=== PATIENT | male | born 1935 | race Caucasian/White ===

== ENCOUNTER 2017-06-18 10:47 | Emergency (ER) | payer MEDICARE | END 2017-06-18 11:42 | disposition left against medical advice (07) | LOC: UCEAST 10:47 | DX: R21 Rash and other nonspecific skin eruption (principal); Z53.21 Procedure and treatment not carried out due to patient leaving prior to being seen by health care provider ==

== ENCOUNTER 2018-11-19 11:32 | Inpatient (IN) | payer MEDICARE ==
[2018-11-19 12:42] LABS: ABS Basophils 0.1 10^3/ul (0-0.2); ABS Eosinophils 0 10^3/ul (0-0.6); ABS Lymphocytes 1.3 10^3/ul (1.0-4.8); ABS Monocytes 1.1 10^3/ul (0-0.8); ABS Neutrophils 10.2 10^3/ul (1.5-7.7); ABS Nucleated RBC 0 10^3/ul; Eosinophil % 0.2 %; Hematocrit 38 % (42-52); Hemoglobin 13.1 g/dl (14.0-18.0); Lymphocyte % 10.5 %; Mean Corpuscular HGB Conc 34 g/dl (31-36); Mean Corpuscular Hemoglobin 31 pg (27-31); Mean Corpuscular Volume 89 fL (80-94); Mean Platelet Volume 7.8 fL (7.4-10.4); Nucleated Red Blood Cells % 0; Platelet Count 191 10^3/ul (150-450); Red Blood Count 4.31 10^6/ul (4.00-5.40); Red Cell Distribution Width 15 % (10.5-15); White Blood Count 12.7 10^3/ul (3.5-10.8)
[2018-11-19 12:48] LABS: INR 1.07 (0.77-1.02)
--- NOTE | 2018-11-19 12:49 | ED ---
Abdominal Pain/Male - HPI Summary HPI Summary: The patient is an 83 y/o M presenting to [facility] accompanied by with a chief complaint of diffuse suprapubic cramping starting approximately three days ago. The pain is constant with intermittent episodes of worsening, and at its worse, the patient states he is unable to move because of the pain. Currently, the pain is rated 4/10 in severity. After taking Pepto Bismol for relief of the abd pain, he had an onset of dark, watery diarrhea two days ago which returned to normal color yesterday, but now he is more constipated. He additionally c/o decreased appetite, with only small meals because he "isn't hungry," but he denies nausea and vomiting. 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 - History of Current Complaint Chief Complaint: EDAbdPain Stated Complaint: ABD PAIN Time Seen by Provider: 11/19/18 11:56 Hx Obtained From: Patient Onset/Duration: Sudden Onset, Lasting Days, Still Present Timing: Constant, Intermittent - epsidoes of worsening, Lasting Days Severity Initially: Moderate Severity Currently: Mild Pain Intensity: 4 Pain Scale Used: 0-10 Numeric Location: Suprapubic - diffuse Radiates: No Character: Dull, Cramping Aggravating Factor(s): Movement Alleviating Factor(s): Other: - Pepto Bismol Associated Signs And Symptoms: Positive: Constipation, Decreased Appetite, Diarrhea. Negative: Urinary Symptoms, Nausea, Vomiting - Allergies/Home Medications Allergies/Adverse Reactions: Allergies Allergy/AdvReac Type Severity Reaction Status Date / Time pregabalin [From Lyrica] Allergy See Comment Verified 11/19/18 11:45 Home Medications: Home Medications Allopurinol 100 mg PO DAILY 11/19/18 [History Confirmed 11/19/18] Aspirin 81 mg PO DAILY 11/19/18 [History Confirmed 11/19/18] Coreg 50 mg PO QPM 11/19/18 [History Confirmed 11/19/18] Lantus 50 units SUBDERMAL DAILY 11/19/18 [History Confirmed 11/19/18] Lisinopril 2.5 mg PO DAILY 11/19/18 [History Confirmed 11/19/18] Novolog 1 unit SUBDERMAL AC 11/19/18 [History Confirmed 11/19/18] PMH/Surg Hx/FS Hx/Imm Hx Endocrine/Hematology History: Reports: Hx Diabetes, Hx Thyroid Disease - HX OF OVERACTIVE THYROID- NODULE, 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, Hx Anemia - HX OF Denies: Hx Systemic Lupus Erythematosus Cardiovascular History: Reports: Hx Congestive Heart Failure, Hx Coronary Artery Disease, Hx Hypertension, Other Cardiovascular Problems/Disorders - HX OF ATRIAL FLUTTER Denies: Hx Pacemaker/ICD Respiratory History: Reports: Other Respiratory Problems/Disorders - PNEUMONIA 2006 Denies: Hx Asthma, Hx Chronic Obstructive Pulmonary Disease (COPD) GI History: Reports: Hx Ulcer - 2010 History: Reports: Hx Kidney Stones - BLADDER STONES Denies: Hx Renal Disease Musculoskeletal History: Reports: Hx Arthritis - BACK AND LEFT KNEE Denies: Hx Rheumatoid Arthritis Sensory History: Reports: Hx Contacts or Glasses - GLASSES Denies: Hx Hearing Aid Opthamlomology History: Reports: Hx Contacts or Glasses - GLASSES Neurological History: Reports: Hx Nerve Disease - "PINCHED NERVE" NECK Psychiatric History: Reports: Hx Anxiety Denies: Hx Panic Disorder - Surgical History Surgery Procedure, Year, and Place: 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; ENDARECTOMY CAROTID 05/31/2014 @ [facility], ABLATION CARDIAC, CARDIO-VERSION Xs2 ;cystoscopy Hx Anesthesia Reactions: No Infectious Disease History: No Infectious Disease History: Denies: Hx Hepatitis, Hx Human Immunodeficiency Virus (HIV), Traveled Outside the [place] in Last 30 Days - Family History Known Family History: Positive: Diabetes - Social History Lives: With Family Alcohol Use: Occasionally Hx Substance Use: No Substance Use Type: Reports: None Hx Tobacco Use: No Smoking Status (MU): Never Smoked Tobacco Type: Cigarettes Amount Used/How Often: 1 PPD X 40 YEARS Length of Time of Smoking/Using Tobacco: 1 PPD/30 YRS Have You Smoked in the Last Year: No Review of Systems Positive: Abdominal Pain - suprapubic cramping, Diarrhea - for two days, with dark stool at first but normal color the second day, Other - constipation today , decreased appetite. Negative: Vomiting, Nausea Positive: other - NEGATIVE: changes in urination All Other Systems Reviewed And Are Negative: Yes Physical Exam - Summary Physical Exam Summary: Appearance: The patient is well-nourished in no acute distress and in no acute pain. Skin: The skin is warm and dry and skin color reflects adequate perfusion. HEENT: The head is normocephalic and atraumatic. The pupils are equal and reactive. The conjunctivae are clear and without drainage. Nares are patent and without drainage. Mouth reveals moist mucous membranes and the throat is without erythema and exudate. The external ears are intact. The ear canals are patent and without drainage. The tympanic membranes are intact. Neck: The neck is supple with full range of motion and non-tender. There are no carotid bruits. There is no neck vein distension. Respiratory: Chest is non-tender. Lungs are clear to auscultation and breath sounds are symmetrical and equal. Cardiovascular: Heart is regular rate and rhythm. There is no murmur or rub auscultated. There is no peripheral edema and pulses are symmetrical and equal. Abdomen: The abdomen is soft with mild diffuse low tenderness. There are normal bowel sounds heard in all four quadrants and there is no organomegaly palpated. Musculoskeletal: There is no back tenderness noted. Extremities are non-tender with full range of motion. There is good capillary refill. There is no peripheral edema or calf tenderness elicited. Neurological: Patient is alert and oriented to person, place and time. The patient has symmetrical motor strength in all four extremities. Cranial nerves are grossly intact. Deep tendon reflexes are symmetrical and equal in all four extremities. Psychiatric: The patient has an appropriate affect and does not exhibit any anxiety or depression. Triage Information Reviewed: Yes Vital Signs On Initial Exam: Initial Vitals Temp Pulse Resp BP Pulse Ox 97.3 F 90 19 90/56 99 11/19/18 11:40 11/19/18 11:40 11/19/18 11:40 11/19/18 11:40 11/19/18 11:40 Vital Signs Reviewed: Yes Diagnostics - Vital Signs Vital Signs Temp Pulse Resp BP Pulse Ox 11/19/18 11:40 97.3 F 90 19 90/56 99 - Laboratory Result Diagrams: 11/19/18 11:39 11/19/18 11:39 Lab Statement: Any lab studies that have been ordered have been reviewed, and results considered in the medical decision making process. - CT Abd/Pel CT CT Interpretation Completed By: Radiologist Summary of CT Findings: 1. Sigmoidal diverticulitis. A 3.5 cm hypoattenuating area along the posterior wall of the sigmoid is suspicious for a fluid collection; however, evaluation is limited without contrast. There is no bowel obstruction. 2. Hepatic steatosis. 3. Nonobstructive calculus in the lower pole of the right kidney with multiple dependent calculi in the urinary bladder. 4. Prostamegaly with signs of urinary bladder outlet obstruction. 5. The stable previously described hepatic cysts and cavernous hemangioma better characterized by comparison MRI imaging. ED physician has reviewed this report. Abd/Pel CT with Contrast CT Interpretation Completed By: Radiologist Summary of CT Findings: 1. Complicated diverticulitis of the sigmoid colon with a 3.5 x 3.0 x 3.2 cm abscess. There is no free air, free fluid or bowel obstruction. 2. Hepatic steatosis. 3. Nonobstructive calculus in the lower pole of the right kidney with multiple dependent calculi in the urinary bladder. 4. Prostamegaly with signs of urinary bladder outlet obstruction. 5. The stable previously described hepatic cysts and cavernous hemangioma better characterized by comparison dynamic MRI imaging of the abdomen. ED physician has reviewed this report. Abdominal Pain Fem Course/Dx - Course Course Of Treatment: Mr. Hanson presented to the emergency department with a concern for a low-grade low abdominal pain for about a week that had wavelike episodes of increased pain. His laboratory work was relatively unremarkable, he was nontoxic in appearance and his vitals are stable. A noncontrasted CT of the abdomen revealed diverticulitis and the radiologist was unable to confidently report the presence of an abscess but suspected it. Contrasted CT scan was obtained and confirmed a 3.5 x 3 x 3.2 sigmoid abscess. The hospitalist service was contacted to admit the patient for IV antibiotics and possible drainage. - Diagnoses Provider Diagnoses: Diverticulitis of sigmoid colon, Diverticulitis of intestine with abscess - Critical Care Time Critical Care Time: 30-74 min Discharge - Sign-Out/Discharge Documenting (check all that apply): Patient Departure - Discharge Plan Condition: Stable Disposition: ADMITTED TO [facility] Referrals: Norman Stephens MD [Primary Care Provider] - - Billing Disposition and Condition Condition: STABLE Disposition: Admitted to [facility] - Attestation Statements Document Initiated by Idrisibe: Yes Documenting Scribe: Agata Alberto Provider For Whom Baltazar is Documenting (Include Credential): Dr. Jonnie Fine MD Scribe Attestation: Agata Peralta scribed for Dr. Jonnie Fine MD on 11/19/18 at 1837. Scribe Documentation Reviewed: Yes Provider Attestation: The documentation as recorded by the scribe, Agata Alberto accurately reflects the service I personally performed and the decisions made by me, Dr. Jonnie Fine MD Status of Baltazar Document: Viewed
[2018-11-19 12:59] LABS: Albumin 3.3 g/dL (3.2-5.2); BUN/Creatinine Ratio 19.3 (8-20); C Reactive Protein 157.57 mg/L (<8.01); Calcium 9.7 mg/dL (8.6-10.3); EGFR Non-African American 61.5 (>60); Globulin 3.3 g/dL (2-4); Potassium 4.3 mmol/L (3.5-5.0); Total Bilirubin 1.2 mg/dL (0.2-1.0); Total Protein 6.6 g/dL (6.4-8.9)
[2018-11-19] MEDS ORDERED: Iodixanol* (CONTRAST) 320 MG/ML 100 ML SDV IV ONE (14:38)
[2018-11-19 17:13] LABS: Urine Appearance Turbid; Urine Bacteria Absent (Absent); Urine Bilirubin Negative (Negative); Urine Blood 2+ (Negative); Urine Color Yellow; Urine Glucose 1+(50 mg/dL) (Negative); Urine Ketones 1+ (Negative); Urine Nitrite Negative (Negative); Urine Protein Negative (Negative); Urine Red Blood Cell 3+(>10/hpf) (Absent); Urine Specific Gravity 1.019 (1.010-1.030); Urine Uric Acid Crystals Present (Absent); Urine Urobilinogen Negative (Negative); Urine White Blood Cell Absent (Absent)
[2018-11-19] MEDS ORDERED: predniSONE TAB* 10 MG PO PRN (18:18)
[2018-11-19] MEDS ORDERED: Dextrose 50% Syringe 50 ML* 25 GM/50 ML SYRINGE IV PUSH PRN (18:21)
--- NOTE | 2018-11-19 18:28 | ADMNOTE ---
Subjective Date of Service: 11/19/18 Interval History: 83 year old Male with history of Diabetes on insulin, Congestive heart failure with EF < 25%, kidney stone, Hypertesnion who presents to the emergency room for abominal pain X 3 days. It is described as crampy pain, generalized abdominal pain. There is no fever, no chills, no nausea, no vomiting. Having diarrhea since arrival to the ED: 3 episodes of liquid BM. No prior similar episodes. Was recently started on Cephalexin for kidney stone. Family History: Findings - Mother: carotid stenosis, stroke. Father: CHF Social History: Findings - Hernia surgery, carotid endarctecomy, cardiac ablation Past Medical History: Findings - Diabetes, CHF with EF < 25%, Hypertension, neuropathy, gout, atrial flutter, hyperthyroidism Review of Systems - Measurements Intake and Output: Intake and Output Last 24 Hours 11/17/18 11/18/18 11/19/18 11/20/18 06:59 06:59 06:59 06:59 Weight 207 lb - Review of Systems Constitutional Symptoms: Negative: Weight Loss, Fever Dermatology: Negative: Rash HEENT: Negative: Change in Hearing Eyes: Positive: Contacts or Glasses Thyroid: Positive: Primary Hyperthyroidism Pulmonary: Positive: COPD Negative: Cough, Shortness of Breath, Home Oxygen Cardiology: Negative: Chest Pain, Palpitations, Orthopnoea Genital - Urinary: Negative: Dysuria, Polyuria Neurology: Negative: Headache, Change in Vision Psychiatry: Positive: Normal Objective Active Medications: HOME MEDICATION: Carvedilol TAB* [Coreg TAB*] 25 mg PO QAM 11/07/13 [History Confirmed 11/19/18] Finasteride TAB* [Proscar TAB*] 5 mg PO QPM 11/07/13 [History Confirmed 11/19/18 ] Omeprazole CAP (NF) [Prilosec CAP*] 20 mg PO QPM 11/07/13 [History Confirmed 10/26] Pravastatin Sodium [Pravachol] 80 tab PO QPM 11/07/13 [History Confirmed ] Terazosin CAP* [Hytrin CAP*] 5 mg PO BEDTIME 11/07/13 [History Confirmed ] Spironolactone TAB* [Aldactone TAB 25 MG*] 50 mg PO QPM 09/06/14 [History Confirmed 11/19/18] predniSONE TAB* [Deltasone TAB*] 100 mg PO QPM PRN 12/12/14 [History Confirmed 11/19/18] Digoxin TAB* [Lanoxin TAB*] 0.125 mg PO QAM 08/21/15 [History Confirmed 11/19/18 ] Latanoprost 0.005% OPTH (NF) [Xalatan 0.005% OPTH (NF)] 1 drop BOTH EYES QPM [History Confirmed 11/19/18] Methimazole TAB* [Tapazole TAB*] 2.5 mg PO QAM 08/21/15 [History Confirmed 11/19] Ropinirole TAB* [Requip TAB*] 0.5 tab PO DAILY 08/21/15 [History Confirmed 11/19] Tramadol HCl [Ultram] 50 mg PO Q4H PRN 08/21/15 [History Confirmed 11/19/18] Allopurinol 100 mg PO DAILY 11/19/18 [History Confirmed 11/19/18] Aspirin 81 mg PO DAILY 11/19/18 [History Confirmed 11/19/18] Coreg 50 mg PO QPM 11/19/18 [History Confirmed 11/19/18] Lantus 50 units SUBDERMAL DAILY 11/19/18 [History Confirmed 11/19/18] Lisinopril 2.5 mg PO DAILY 11/19/18 [History Confirmed 11/19/18] Novolog 1 unit SUBDERMAL AC 11/19/18 [History Confirmed 11/19/18] Vital Signs - 8 hr 11/19/18 11/19/18 11/19/18 11:40 12:11 12:12 Temperature 97.3 F Pulse Rate 90 79 Respiratory 19 Rate Blood Pressure 90/56 112/71 (mmHg) O2 Sat by Pulse 99 Oximetry 11/19/18 11/19/18 11/19/18 12:42 13:01 13:12 Temperature Pulse Rate 88 92 Respiratory Rate Blood Pressure 112/71 110/62 (mmHg) O2 Sat by Pulse 96 95 Oximetry 11/19/18 11/19/18 11/19/18 13:42 14:00 15:07 Temperature Pulse Rate 95 84 98 Respiratory Rate Blood Pressure 123/65 (mmHg) O2 Sat by Pulse 95 95 97 Oximetry 11/19/18 11/19/18 11/19/18 15:12 16:39 16:42 Temperature Pulse Rate 87 79 85 Respiratory Rate Blood Pressure 91/68 89/62 (mmHg) O2 Sat by Pulse 97 93 96 Oximetry 11/19/18 17:00 Temperature Pulse Rate 91 Respiratory Rate Blood Pressure (mmHg) O2 Sat by Pulse 93 Oximetry Oxygen Devices in Use Now: None Appearance: Elderly male, sitting on chair, not in distress Eyes: PERRLA Respiratory: Clear to Auscultation Cardiovascular: RRR, No Edema Abdominal: - - Bowel sounds are normoactive, soft, mildly tender, no ridigity or guarding, non-distended Extremities: No Edema Neurological: Alert and Oriented x 3 Result Diagrams: 11/19/18 11:39 11/19/18 11:39 Diagnostic Imaging: Abdominal CT IMPRESSION: 1. Complicated diverticulitis of the sigmoid colon with a 3.5 x 3.0 x 3.2 cm abscess. There is no free air, free fluid or bowel obstruction. 2. Hepatic steatosis. 3. Nonobstructive calculus in the lower pole of the right kidney with multiple dependent calculi in the urinary bladder. 4. Prostamegaly with signs of urinary bladder outlet obstruction. 5. The stable previously described hepatic cysts and cavernous hemangioma better characterized by comparison dynamic MRI imaging of the abdomen. This report is only to be considered final once signed by the Provider(s) as displayed in the "<Electronically Signed by >" field (s). Absence of a signature indicates the report is in a draft status and still needs to be finalized. In the event this document was created by someone other than the signing Provider, the individual initiating the document will be listed in the "Entered by:" or "Dictated by:" aguilar. 2 of 2 Assess/Plan/Problems-Billing Assessment: 83 year old Male with history of Diabetes, Hyperthyroidism, CHF EF < 25% who presents with abdominal pain, CT shows diverticulitis with abscess. - Patient Problems (1) Diverticulitis of intestine with abscess Current Visit: Yes Status: Acute Code(s): K57.80 - DVTRCLI OF INTEST, PART UNSP, W PERF AND ABSCESS W/O BLEED SNOMED Code(s): 365106106 Comment: Diverticulitis with 3.5 X 3.0 X [address] Waddell was contacted in the ED, recommended antibiotics and call IR for drainage. started zosyn, IR not availble right now, will need to call on Wednesday and discuss case with IR. (2) Hyperthyroidism Current Visit: Yes Status: Acute Code(s): E05.90 - THYROTOXICOSIS, UNSP WITHOUT THYROTOXIC CRISIS OR STORM SNOMED Code(s): 40657565 Comment: Continue methimazole, Check TSH (3) CHF (congestive heart failure) Current Visit: Yes Status: Acute Code(s): I50.9 - HEART FAILURE, UNSPECIFIED SNOMED Code(s): 74299795 Comment: without exacerbation. Continue home regimen: coreg, aldactone, digoxin, statin (4) HTN (hypertension) Current Visit: Yes Status: Acute Code(s): I10 - ESSENTIAL (PRIMARY) HYPERTENSION SNOMED Code(s): 52107232 Comment: continue home regimen (5) Gout Current Visit: Yes Status: Acute Code(s): M10.9 - GOUT, UNSPECIFIED SNOMED Code(s): 03174188 Comment: On allopurinol (6) History of kidney stones Current Visit: Yes Status: Acute Code(s): Z87.442 - PERSONAL HISTORY OF URINARY CALCULI SNOMED Code(s): 697049243 (7) DVT prophylaxis Current Visit: Yes Status: Acute Code(s): QHU1346 - SNOMED Code(s): 667857231 Comment: Adrianna Garner
[2018-11-19] MEDS: Piperacillin/Tazobac ADVAN(*) 3.375 GM in NS 0.9% 100 ML* 100 ML IVPB SCH (20:18)
[2018-11-19] MEDS: Enoxaparin(*) 40 MG/0.4 ML SYR SUBCUT SCH (20:29)
[2018-11-19] MEDS: Pantoprazole TAB * 40 MG TAB PO SCH (20:29)
[2018-11-19] MEDS: Carvedilol TAB* 25 MG PO SCH (20:29)
[2018-11-19] MEDS: Lactobacillus Acidophilus* 1 TAB PO SCH (20:30)
[2018-11-19] MEDS: Latanoprost 0.005%* 2.5 ml BTL BOTH EYES SCH (20:30)
[2018-11-19] MEDS: Terazosin CAP* 5 MG PO SCH (20:30)
[2018-11-19] MEDS: Insulin LISPRO* 1 UNITS UNIT SUBCUT SCH (22:30)
[2018-11-20] MEDS: Piperacillin/Tazobac ADVAN(*) 3.375 GM in NS 0.9% 100 ML* 100 ML IVPB SCH ×3 (03:30→19:45)
[2018-11-20 07:13] LABS: ABS Basophils 0.1 10^3/ul (0-0.2); ABS Eosinophils 0 10^3/ul (0-0.6); ABS Lymphocytes 1.4 10^3/ul (1.0-4.8); ABS Neutrophils 7.5 10^3/ul (1.5-7.7); ABS Nucleated RBC 0 10^3/ul; Eosinophil % 0.2 %; Hematocrit 34 % (42-52); Hemoglobin 11.6 g/dl (14.0-18.0); Lymphocyte % 13.7 %; Mean Corpuscular HGB Conc 34 g/dl (31-36); Mean Corpuscular Hemoglobin 30 pg (27-31); Mean Corpuscular Volume 88 fL (80-94); Nucleated Red Blood Cells % 0; Platelet Count 156 10^3/ul (150-450); Red Blood Count 3.83 10^6/ul (4.00-5.40); Red Cell Distribution Width 16 % (10.5-15); White Blood Count 9.9 10^3/ul (3.5-10.8)
[2018-11-20 07:41] LABS: BUN/Creatinine Ratio 17.9 (8-20); Magnesium 1.6 mg/dL (1.9-2.7); Phosphorus 2.9 mg/dL (2.5-5.0); Potassium 3.8 mmol/L (3.5-5.0)
[2018-11-20 08:40] LABS: TSH (Thyroid Stimulating Horm) 1.03 mcIU/mL (0.34-5.60)
[2018-11-20] MEDS ORDERED: Insulin GLARGINE(*) 1 UNITS UNIT SUBCUT SCH (09:00)
[2018-11-20] MEDS: Ropinirole TAB* 0.5 MG TAB PO SCH (09:34)
[2018-11-20] MEDS: Lactobacillus Acidophilus* 1 TAB PO SCH ×2 (09:34→20:46)
[2018-11-20] MEDS: Lisinopril TAB* 5 MG PO SCH (09:35)
[2018-11-20] MEDS: Carvedilol TAB* 25 MG PO SCH ×2 (09:35→17:00)
[2018-11-20] MEDS: Methimazole TAB* 5 MG PO SCH (09:36)
[2018-11-20] MEDS: Digoxin TAB* 0.125 MG PO SCH (09:36)
[2018-11-20] MEDS: Allopurinol TAB* 100 MG PO SCH (09:36)
[2018-11-20] MEDS: Insulin LISPRO* 1 UNITS UNIT SUBCUT SCH ×4 (09:37→20:46)
[2018-11-20] MEDS: Aspirin 81 mg CHEW TAB* 81 MG TAB.CHEW PO SCH (09:37)
[2018-11-20] MEDS: Insulin GLARGINE(*) 1 UNITS UNIT SUBCUT SCH (09:38)
--- NOTE | 2018-11-20 11:32 | PN ---
Subjective Date of Service: 11/20/18 Interval History: Pt stated that abd pain started Wednesday and now resolved. denies fever, SOB, chills. Loose BM's started last night(so far 4 total) Family History: Findings - Mother: carotid stenosis, stroke. Father: CHF Social History: Findings - Hernia surgery, carotid endarctecomy, cardiac ablation Past Medical History: Findings - Diabetes, CHF with EF < 25%, Hypertension, neuropathy, gout, atrial flutter, hyperthyroidism Objective Active Medications: Allopurinol (Zyloprim Tab*) 100 mg PO DAILY [facility] Last Admin: 11/20/18 09:36 Dose: 100 mg Aspirin (Aspirin 81 Mg Chew Tab*) 81 mg PO DAILY [facility] Last Admin: 11/20/18 09:37 Dose: 81 mg Atorvastatin Calcium (Lipitor*) 20 mg PO QPM [facility] Carvedilol (Coreg Tab*) 25 mg PO QAM [facility] Last Admin: 11/20/18 09:35 Dose: 25 mg Carvedilol (Coreg Tab*) 50 mg PO QPM [facility] Last Admin: 11/19/18 20:29 Dose: 50 mg Dextrose (D50w Syringe 50 Ml*) 12.5 gm IV PUSH .FOR FS < 60 - SS PRN PRN Reason: FS < 60 Digoxin (Lanoxin Tab*) 0.125 mg PO QAM [facility] Last Admin: 11/20/18 09:36 Dose: 0.125 mg Enoxaparin Sodium (Lovenox(*)) 40 mg SUBCUT 2100 [facility] Last Admin: 11/19/18 20:29 Dose: 40 mg Finasteride (Proscar Tab*) 5 mg PO QPM [facility] Piperacillin Sod/Tazobactam (Sod 3.375 gm/ Sodium Chloride) 100 mls @ 25 mls/ hr IVPB Q8H [facility] Last Admin: 11/20/18 03:30 Dose: 25 mls/hr Sodium Chloride (Ns 0.9% 1000 Ml*) 1,000 mls @ 75 mls/hr IV PER RATE [facility] Insulin Glargine (Lantus(*)) 40 units SUBCUT DAILY [facility] Last Admin: 11/20/18 09:38 Dose: 40 unit Insulin Human Lispro (Humalog*) 0 units SUBCUT ACHS [facility]; Protocol Last Admin: 11/20/18 09:37 Dose: 2 unit Lactobacillus Rhamnosus (Lactobacillus Acidophilus*) 1 tab PO BID [facility] Last Admin: 11/20/18 09:34 Dose: 1 tab Latanoprost (Xalatan 0.005%*) 1 drop BOTH EYES 2100 [facility] Last Admin: 11/19/18 20:30 Dose: 1 drop Lisinopril (Prinivil Tab*) 2.5 mg PO DAILY [facility] Last Admin: 11/20/18 09:35 Dose: 2.5 mg Methimazole (Tapazole Tab*) 2.5 mg PO QAM [facility] Last Admin: 11/20/18 09:36 Dose: 2.5 mg Pantoprazole Sodium (Protonix Tab (Nf)) 40 mg PO QPM [facility] Last Admin: 11/19/18 20:29 Dose: 40 mg Ropinirole HCl (Requip Tab*) 0.25 mg PO DAILY [facility] Last Admin: 11/20/18 09:34 Dose: 0.25 mg Terazosin HCl (Hytrin Cap*) 5 mg PO BEDTIME [facility] Last Admin: 11/19/18 20:30 Dose: 5 mg Vital Signs - 8 hr 11/20/18 11/20/18 11/20/18 03:38 03:57 07:14 Temperature 97.2 F 98.5 F Pulse Rate 92 92 96 Respiratory 16 16 16 Rate Blood Pressure 112/46 114/52 97/55 (mmHg) O2 Sat by Pulse 97 95 97 Oximetry 11/20/18 11/20/18 11/20/18 08:00 09:33 09:36 Temperature Pulse Rate 96 Respiratory 20 Rate Blood Pressure 118/52 (mmHg) O2 Sat by Pulse Oximetry Oxygen Devices in Use Now: None Appearance: 83 yo m in nAD, aAOx3 Eyes: No Scleral Icterus, PERRLA Ears/Nose/Mouth/Throat: NL Teeth, Lips, Gums, Mucous Membranes Moist Neck: NL Appearance and Movements; NL JVP, Trachea Midline Respiratory: Symmetrical Chest Expansion and Respiratory Effort, Clear to Auscultation Cardiovascular: - - tachy Abdominal: NL Sounds; No Tenderness; No Distention, No Hepatosplenomegaly Lymphatic: No Cervical Adenopathy Extremities: No Edema, No Clubbing, Cyanosis Skin: No Rash or Ulcers, No Nodules or Sclerosis Neurological: Alert and Oriented x 3, NL Muscle Strength and Tone Result Diagrams: 11/20/18 06:47 11/20/18 06:47 Diagnostic Imaging: Abdominal CT IMPRESSION: 1. Complicated diverticulitis of the sigmoid colon with a 3.5 x 3.0 x 3.2 cm abscess. There is no free air, free fluid or bowel obstruction. 2. Hepatic steatosis. 3. Nonobstructive calculus in the lower pole of the right kidney with multiple dependent calculi in the urinary bladder. 4. Prostamegaly with signs of urinary bladder outlet obstruction. 5. The stable previously described hepatic cysts and cavernous hemangioma better characterized by comparison dynamic MRI imaging of the abdomen. This report is only to be considered final once signed by the Provider(s) as displayed in the "<Electronically Signed by >" field (s). Absence of a signature indicates the report is in a draft status and still needs to be finalized. In the event this document was created by someone other than the signing Provider, the individual initiating the document will be listed in the "Entered by:" or "Dictated by:" aguilar. 2 of 2 Assess/Plan/Problems-Billing Assessment: 83 year old Male with history of Diabetes, Hyperthyroidism, CHF EF < 25% , PAF( not on Xarelto due to hematuria in the past) who declined ICD recently("would not improve my quality of life")who presents with abdominal pain, CT shows diverticulitis with abscess. - Patient Problems (1) Diverticulitis of intestine with abscess Comment: Diverticulitis with 3.5 X 3.0 X 3.2 cm abscess. d/w Dr. Waddell who will see pt in consult. Spoke with Dr. Damon from radiology- the abscess location is not amenable to IR drain due to location. Plan is to tx with antibiotcs IV, then PO. (2) CHF (congestive heart failure) Comment: without exacerbation. Continue home regimen: coreg, digoxin, statin (3) HTN (hypertension) Comment: continue home regimen (4) History of kidney stones Comment: pt was on cephalexin daily for UTI supression from Dr. Stahl. Holding it when on Zosyn. (5) Hyperthyroidism Comment: Continue methimazole.TSH 1.03 (6) Increased creatine kinase level Comment: pt has had diarrhea, likley prerenal state now. will hold aldactone x 1 day and start gentle IVF. Watch daily weights due to h/o CHF. (7) DVT prophylaxis Comment: Lovenox subQ
--- NOTE | 2018-11-20 14:25 | CONS ---
HISTORY AND PHYSICAL CONSULTATION: DATE OF CONSULT: 11/20/18 SERVICE: General Surgery. ATTENDING PHYSICIAN: Dr. Cori Waddell. REASON FOR CONSULT: Diverticulitis with abscess. HISTORY OF PRESENT ILLNESS: Mr. Hanson is an 83-year-old gentleman with multiple medical problems including diabetes, congestive heart failure with an ejection fraction of less than 25%, renal and bladder stones, previous cardiac ablation and carotid endarterectomy, who presented to the emergency room yesterday with complaints of 3 days of suprapubic lower abdominal pain. The patient said that he was in his normal state of health prior to this pain beginning. He says that around the same time the pain started he started having some diarrhea. He does have a history of having several large bladder stones. Dr. Stahl has been following him for this and he has attempted cystoscopy and lithotripsy. He thought that this pain was largely due to a kidney stone. He says that he did not have any fevers at home and no nausea or vomiting. He also notes that he had a colonoscopy done in 2016, which was normal. During his workup the patient had a CT scan of his abdomen and pelvis performed with IV contrast that did show diverticulitis with a contained pericolonic abscess that was about 35 mm in diameter. He has since been admitted to the medicine service. He has been on IV antibiotics and today he says he has no abdominal pain and he remains afebrile and he is able to tolerate a diet. PAST MEDICAL HISTORY: 1. Diabetes. 2. Congestive heart failure, EF less than 25%. 3. Kidney stones. 4. Bladder stones. 5. Hypertension. 6. Atrial flutter. 7. Carotid stenosis, status post carotid endarterectomy. 8. He also has a history of neuropathy. 9. Gout. 10. Hyperthyroidism. PAST SURGICAL HISTORY: Carotid endarterectomy, hernia repair. No abdominal surgeries. MEDICATIONS: 1. Carvedilol 25 mg p.o. q.a.m. 2. Finasteride 5 mg p.o. q.p.m. 3. Omeprazole. 4. Pravastatin. 5. Terazosin. 6. Spironolactone. 7. Prednisone 100 mg p.o. q.p.m. p.r.n. 8. Digoxin 0.125 mg p.o. q.a.m. 9. Latanoprost. 10. Methimazole 2.5 mg p.o. q.a.m. 11. Ropinirole. 12. Tramadol. 13. Allopurinol. 14. Aspirin 81 mg p.o. daily. 15. Coreg 50 mg p.o. q.p.m. 16. Lantus 50 units subdermal daily. 17. Lisinopril 2.5 mg p.o. daily. 18. NovoLog 1 unit subdermal a.c. ALLERGIES: PREGABALIN. FAMILY HISTORY: Mother had carotid stenosis and from a stroke. His father had congestive heart failure. SOCIAL HISTORY: Lives at home with his . Not currently smoking. In the past, he did smoke. REVIEW OF SYSTEMS: Negative except for resolved abdominal pain and diarrhea. PHYSICAL EXAM: Vital Signs: Temperature is 98.5, pulse is 96, respiratory rate is 20, O2 sat is 97% O2 on room air, blood pressure is 118/52. General: He is an elderly man, lying comfortably in bed, in no apparent distress. HEENT : He is normocephalic, atraumatic. Respiratory: He has no increased work of breathing. Abdomen is soft, nontender, nondistended. Above the pubis, he does state that he has some fullness when palpating deeply this area. Extremities: No edema. Neuro: He is A and O x3. DIAGNOSTIC STUDIES/LAB DATA: From 11/20/18, his white blood cell count is 9.9, hemoglobin 11.6, hematocrit 34, platelets 156. Sodium is 135, potassium is 3.8 , chloride is 101, CO2 is 22, BUN is 24, creatinine is 1.34, glucose is 191. Radiology: From 11/19/18, CT abdomen and pelvis shows complicated diverticulitis of the sigmoid colon with 35 x 30 x 32 mm abscess. No free fluid or bowel obstruction. 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 ASSESSMENT AND PLAN: Mr. Hanson is an 83-year-old gentleman with multiple medical problems including congestive heart failure, atrial flutter, hypertension, diabetes, who presents with diverticulitis and pericolonic abscess. The patient has had a very uneventful hospital course. He remains afebrile, his pain has resolved, he is tolerating a diet without abdominal pain , and his white count has normalized. I have reviewed his CT scan and it appears that he does have a contained pericolonic abscess that is likely not amenable to percutaneous drainage, which is adjacent to an area of inflamed sigmoid colon. Otherwise, there is no free fluid in the abdomen and just some mild stranding around the segment of sigmoid colon. The patient has been on IV antibiotics and seems to be responding very well. I discussed with the patient and his at length the etiology of diverticulitis as well as the different treatment options. I explained to him that typically with complicated diverticulitis the recommended treatment would be to later on undergo a sigmoid colectomy after recovery of this event. However, given his extensive cardiac history, the risk of cardiac events during anesthesia versus the risk of having a recurrent complicated diverticulitis must be weighed carefully. I did note to the patient and his that the risk of not doing surgery is having recurrent diverticulitis and the potential for complications from this in the future. I also said that after admission, the patient should be followed up with the [facility] for a colonoscopy in 6 to 8 weeks after this inflammation has resolved in order to assess the colon and ensure that there is not actually a malignancy as a source of his perforation. I have also recommended that Infectious Diseases follow this patient, given that this likely cannot be percutaneously drained and he will have to be on some sort of long-term oral antibiotics for treatment. The patient and his seemed to be amenable to this and at this time do not seem to want surgery in the future even after this episode resolves. After the patient is discharged, he should follow up with [facility] Surgery in about 2 weeks for a followup visit. [id number]/[facility] #: [id number] JED
[2018-11-20] MEDS: Atorvastatin* 20 MG TAB PO SCH (17:00)
[2018-11-20] MEDS: Pantoprazole TAB * 40 MG TAB PO SCH (17:00)
[2018-11-20] MEDS: Finasteride TAB* 5 MG PO SCH (17:00)
[2018-11-20] MEDS ORDERED: Spironolactone TAB* 25 MG PO SCH (18:00)
[2018-11-20] MEDS: NS 0.9% 1000 ML* 1,000 ML IV SCH (19:45)
[2018-11-20] MEDS: Enoxaparin(*) 40 MG/0.4 ML SYR SUBCUT SCH (20:46)
[2018-11-20] MEDS: Terazosin CAP* 5 MG PO SCH (20:46)
[2018-11-20] MEDS: Latanoprost 0.005%* 2.5 ml BTL BOTH EYES SCH (20:49)
[2018-11-21] MEDS: Piperacillin/Tazobac ADVAN(*) 3.375 GM in NS 0.9% 100 ML* 100 ML IVPB SCH ×3 (03:30→19:41)
[2018-11-21] MEDS: NS 0.9% 1000 ML* 1,000 ML IV SCH (04:27)
[2018-11-21] MEDS ORDERED: Spironolactone TAB* 25 MG PO SCH (09:00)
[2018-11-21 09:22] LABS: Hematocrit 31 % (42-52); Hemoglobin 10.4 g/dl (14.0-18.0); Mean Corpuscular HGB Conc 34 g/dl (31-36); Mean Corpuscular Hemoglobin 30 pg (27-31); Mean Corpuscular Volume 89 fL (80-94); Mean Platelet Volume 7.8 fL (7.4-10.4); Platelet Count 145 10^3/ul (150-450); Red Blood Count 3.43 10^6/ul (4.00-5.40); Red Cell Distribution Width 15 % (10.5-15)
--- NOTE | 2018-11-21 09:23 | PN ---
Progress Note - Progress Note Date of Service: 11/21/18 Note: Surgery Progress Note S: Patient has no new complaints. He feels well. He has no abdominal pain, he has been tolerating a regular diet. This morning he had a soft stool for the first time, prior to this is has been diarrhea. He did have a low grade fever overnight to 100.4 Objective: Laboratory Results - last 24 hr 11/20/18 11/20/18 11/20/18 11:11 16:24 19:50 POC Glucose (mg/dL) 219 H 159 H 198 H 11/21/18 07:20 POC Glucose (mg/dL) 159 H . Vital Signs: Temp Pulse Resp BP Pulse Ox 99.0 F 94 16 109/41 95 11/21/18 07:20 11/21/18 07:20 11/21/18 07:38 11/21/18 07:20 11/21/18 07:20 Vital Signs - 24 hr 11/20/18 11/20/18 11/20/18 09:33 09:36 11:05 Temperature 98.5 F Pulse Rate 96 91 Respiratory 16 Rate Blood Pressure 118/52 81/36 (mmHg) O2 Sat by Pulse 97 Oximetry 11/20/18 11/20/18 11/20/18 12:00 15:15 15:49 Temperature 99.3 F Pulse Rate 92 Respiratory 16 Rate Blood Pressure 110/70 87/41 100/78 (mmHg) O2 Sat by Pulse 95 Oximetry 11/20/18 11/20/18 11/20/18 19:40 19:55 20:00 Temperature 99.3 F Pulse Rate 90 Respiratory 16 16 Rate Blood Pressure 102/48 (mmHg) O2 Sat by Pulse 96 Oximetry 11/20/18 11/21/18 11/21/18 23:34 00:28 03:38 Temperature 100.4 F 100.4 F 99.8 F Pulse Rate 94 94 99 Respiratory 16 16 16 Rate Blood Pressure 88/29 101/50 98/42 (mmHg) O2 Sat by Pulse 97 97 96 Oximetry 11/21/18 11/21/18 11/21/18 07:20 07:37 07:38 Temperature 99.0 F Pulse Rate 94 Respiratory 16 16 16 Rate Blood Pressure 109/41 (mmHg) O2 Sat by Pulse 95 Oximetry Intake & Output 11/20/18 11/21/18 11/21/18 22:59 06:59 14:59 Intake Total 953 679 220 Balance 953 679 220 Weight 216 lb 4.8 oz Intake: IV Fluids 713 679 ABX - ZOSYN 100 100 NS 613 579 Oral 240 0 220 Other: # Bowel Movements 1 Estimated Stool Amount Medium # Voids 2 Physical exam: abdomen soft, non tender, non distended A/P: 83 M with diverticulitis and pericolonic abscess, doing well. - Patient continues to have no pain, tolerating a regular diet however did have a low grade fever overnight. His WBC from this morning is still pending. Appreciate ID recommendations regarding length of therapy. -Possible discharge home today if he remains afebrile. He can [facility] with [facility] as an outpatient and he should follow up with GI as an outpatient for a colonoscopy in 6-8 weeks to ensure there the perforation was not due to a malignancy.
[2018-11-21] MEDS: Ropinirole TAB* 0.5 MG TAB PO SCH (09:39)
[2018-11-21] MEDS: Lisinopril TAB* 5 MG PO SCH (09:39)
[2018-11-21] MEDS: Carvedilol TAB* 25 MG PO SCH ×2 (09:40→17:04)
[2018-11-21] MEDS: Allopurinol TAB* 100 MG PO SCH (09:40)
[2018-11-21] MEDS: Digoxin TAB* 0.125 MG PO SCH (09:40)
[2018-11-21] MEDS: Insulin GLARGINE(*) 1 UNITS UNIT SUBCUT SCH (09:41)
[2018-11-21] MEDS: Lactobacillus Acidophilus* 1 TAB PO SCH ×2 (09:41→20:16)
[2018-11-21] MEDS: Aspirin 81 mg CHEW TAB* 81 MG TAB.CHEW PO SCH (09:41)
[2018-11-21] MEDS: Insulin LISPRO* 1 UNITS UNIT SUBCUT SCH ×4 (09:42→20:17)
[2018-11-21] MEDS: Methimazole TAB* 5 MG PO SCH (09:43)
[2018-11-21 09:44] LABS: Calcium 8.3 mg/dL (8.6-10.3); EGFR Non-African American 28.1 (>60); Potassium 3.7 mmol/L (3.5-5.0)
--- NOTE | 2018-11-21 12:01 | CONS ---
CONSULTATION REPORT: DATE OF CONSULT: 11/21/18 REQUESTING PHYSICIAN: Dr. James CONSULTING SERVICE: Infectious Disease. REASON FOR CONSULT: Diverticular abscess. IMPRESSION: 1. Intraabdominal abscess due to perforated diverticulitis of the sigmoid colon. It is 3.5 x 3 x 3.2 cm, not accessible by Interventional Radiology. He is improving on Zosyn. 2. Diverticulitis, last colonoscopy a few years ago. 3. Ejection fraction less than 25%. 4. Atrial flutter. RECOMMENDATIONS: Continue Zosyn while here and then Invanz 1 g daily to continue outpatient therapy. He has had 2 days of IV antibiotics, plan on 10 days total of IV and I will change him to Augmentin to finish a 3-week course. He will follow up with me early next week. He will need a weekly CBC, CMP, CRP , and a midline catheter. We discussed antibiotic side effects including fever, rash, diarrhea. HISTORY OF PRESENT ILLNESS: An 83-year-old man with a couple of days of worsening lower abdominal pain with some chills, decreased appetite, who came to the hospital. CT showed abscess, this is described above. Radiology did not feel it is accessible for a drain. Surgery saw him, did not think he needs a surgery. He is improving after 2 days of Zosyn. The pain is much improved. His appetite is coming around. He is having no diarrhea. No chills or sweats at night. He has not had diverticulitis in the past that he knows of. He has had a colonoscopy, which was normal per his report. PAST MEDICAL HISTORY: 1. Diabetes. 2. Atrial flutter. 3. Congestive heart failure, ejection fraction less than 25%. 4. Hypertension. 5. Neuropathy, 6. Gout. 7. Hypothyroidism. 8. Urinary tract infection with nephrolithiasis. ALLERGIES: PREGABALIN. MEDICATIONS: 1. Allopurinol. 2. Aspirin. 3. Lipitor. 4. Coreg. 5. Digoxin. 6. Finasteride. 7. Enoxaparin. 8. Insulin glargine. 9. Lactobacillus. 10. Lisinopril. 11. Methimazole. 12. Pantoprazole. 13. Ropinirole. 15. Terazosin. 16. Zosyn 3.375 g IV every 8 hours. SOCIAL HISTORY: Lives in [place] with his . No sick contacts. FAMILY HISTORY: Mother had carotid stenosis and CVA. Father had heart failure. REVIEW OF SYSTEMS: A 14-point review of system is all negative except as noted above in the history of present illness. PHYSICAL EXAM: Vital Signs: Temperature 37, heart rate 90, respiratory rate 16 , blood pressure 110/40, oxygen saturation 95% on room air. In general, he is awake, not in distress. Neurologic: He is oriented x3. Follows all commands. HEENT: There is no conjunctival hemorrhage. Oropharynx without lesions. Neck : Neck is supple without mass. Heart is regular rate and rhythm without murmurs, rubs, or gallops. Lungs are clear to auscultation bilaterally. Abdomen: Soft, nontender, nondistended. There are bowel sounds present. Skin : There is no rash or splinter hemorrhage. Musculoskeletal: There is no spine tenderness to palpation. DIAGNOSTIC STUDIES/LAB DATA: White blood cell count 9 down from 12, hemoglobin 11, platelets 156. Creatinine 1.3. Please see impression and recommendations as outlined above, which I am going to discuss with Dr. James. Thanks for asking me to see Mr. Hanson in consultation. [id number]/[facility] #: [id number] MTDD
[2018-11-21] MEDS ORDERED: Acetaminophen TAB* 325 MG PO PRN (12:53)
--- NOTE | 2018-11-21 14:32 | PN ---
Subjective Date of Service: 11/21/18 Interval History: Pt feels well.No recurrence of abd pain. Chronic back pain worse "from hospital bed". BM's loose , had 3 in the past 24H. Denies problems with urination Family History: Findings - Mother: carotid stenosis, stroke. Father: CHF Social History: Findings - Hernia surgery, carotid endarctecomy, cardiac ablation Past Medical History: Findings - Diabetes, CHF with EF < 25%, Hypertension, neuropathy, gout, atrial flutter, hyperthyroidism Objective Active Medications: Acetaminophen (Tylenol Tab*) 650 mg PO Q4H PRN PRN Reason: FEVER/PAIN Last Admin: 11/21/18 12:57 Dose: 650 mg Allopurinol (Zyloprim Tab*) 100 mg PO DAILY [facility] Last Admin: 11/21/18 09:40 Dose: 100 mg Aspirin (Aspirin 81 Mg Chew Tab*) 81 mg PO DAILY [facility] Last Admin: 11/21/18 09:41 Dose: 81 mg Atorvastatin Calcium (Lipitor*) 20 mg PO QPM [facility] Last Admin: 11/20/18 17:00 Dose: 20 mg Carvedilol (Coreg Tab*) 25 mg PO QAM [facility] Last Admin: 11/21/18 09:40 Dose: 25 mg Carvedilol (Coreg Tab*) 50 mg PO QPM [facility] Last Admin: 11/20/18 17:00 Dose: 50 mg Dextrose (D50w Syringe 50 Ml*) 12.5 gm IV PUSH .FOR FS < 60 - SS PRN PRN Reason: FS < 60 Digoxin (Lanoxin Tab*) 0.125 mg PO QAM [facility] Last Admin: 11/21/18 09:40 Dose: 0.125 mg Enoxaparin Sodium (Lovenox(*)) 40 mg SUBCUT 2100 [facility] Last Admin: 11/20/18 20:46 Dose: 40 mg Finasteride (Proscar Tab*) 5 mg PO QPM [facility] Last Admin: 11/20/18 17:00 Dose: 5 mg Piperacillin Sod/Tazobactam (Sod 3.375 gm/ Sodium Chloride) 100 mls @ 25 mls/ hr IVPB Q8H [facility] Last Admin: 11/21/18 12:57 Dose: 25 mls/hr Sodium Chloride (Ns 0.9% 1000 Ml*) 1,000 mls @ 75 mls/hr IV PER RATE [facility] Last Admin: 11/21/18 04:27 Dose: 75 mls/hr Insulin Glargine (Lantus(*)) 40 units SUBCUT DAILY [facility] Last Admin: 11/21/18 09:41 Dose: 40 unit Insulin Human Lispro (Humalog*) 0 units SUBCUT ACHS [facility]; Protocol Last Admin: 11/21/18 12:57 Dose: 1 unit Lactobacillus Rhamnosus (Lactobacillus Acidophilus*) 1 tab PO BID [facility] Last Admin: 11/21/18 09:41 Dose: 1 tab Latanoprost (Xalatan 0.005%*) 1 drop BOTH EYES 2100 [facility] Last Admin: 11/20/18 20:49 Dose: 1 drop Lisinopril (Prinivil Tab*) 2.5 mg PO DAILY [facility] Last Admin: 11/21/18 09:39 Dose: 2.5 mg Methimazole (Tapazole Tab*) 2.5 mg PO QAM [facility] Last Admin: 11/21/18 09:43 Dose: 2.5 mg Pantoprazole Sodium (Protonix Tab (Nf)) 40 mg PO QPM [facility] Last Admin: 11/20/18 17:00 Dose: 40 mg Ropinirole HCl (Requip Tab*) 0.25 mg PO DAILY [facility] Last Admin: 11/21/18 09:39 Dose: 0.25 mg Spironolactone (Aldactone Tab*) 50 mg PO DAILY [facility] Last Admin: 11/21/18 09:40 Dose: 50 mg Terazosin HCl (Hytrin Cap*) 5 mg PO BEDTIME [facility] Last Admin: 11/20/18 20:46 Dose: 5 mg Vital Signs - 8 hr 11/21/18 11/21/18 11/21/18 07:20 07:37 07:38 Temperature 99.0 F Pulse Rate 94 Respiratory 16 16 16 Rate Blood Pressure 109/41 (mmHg) O2 Sat by Pulse 95 Oximetry 11/21/18 11/21/18 11/21/18 09:40 11:26 12:41 Temperature 98.5 F Pulse Rate 108 91 Respiratory 16 Rate Blood Pressure 110/70 (mmHg) O2 Sat by Pulse 97 Oximetry Oxygen Devices in Use Now: None Appearance: 83 yo M in nAD, aAOx3 Eyes: No Scleral Icterus, PERRLA Ears/Nose/Mouth/Throat: NL Teeth, Lips, Gums, Mucous Membranes Moist Neck: NL Appearance and Movements; NL JVP, Trachea Midline Respiratory: Symmetrical Chest Expansion and Respiratory Effort, - - fine bibasiliar crackles Cardiovascular: NL Sounds; No Murmurs; No JVD, RRR Abdominal: NL Sounds; No Tenderness; No Distention, No Hepatosplenomegaly Lymphatic: No Cervical Adenopathy Extremities: No Edema, No Clubbing, Cyanosis Skin: No Rash or Ulcers, No Nodules or Sclerosis Neurological: Alert and Oriented x 3, NL Muscle Strength and Tone Result Diagrams: 11/21/18 09:13 11/21/18 09:13 Assess/Plan/Problems-Billing Assessment: 83 year old Male with history of Diabetes, Hyperthyroidism, CHF EF < 25% , PAF( not on Xarelto due to hematuria in the past) who declined ICD recently("would not improve my quality of life")who presents with abdominal pain, CT shows diverticulitis with abscess. - Patient Problems (1) Increased creatine kinase level Comment: acute renal failure, with worsening today, despite stopping aldactone ( x1 dose) and IVF. CT shows poss of bladder outlet obstruction by prostate pt denies urinary symptoms, but will obtain post void. Cont IVF, hold Aldactone, lisinoprl. will get digoxin level in aM (2) Diverticulitis of intestine with abscess Comment: Diverticulitis with 3.5 X 3.0 X 3.2 cm abscess. d/w Dr. Waddell -appreciate consult. Spoke with Dr. Damon from radiology-the abscess location is not amenable to IR drain due to location. Plan is to tx with antibiotcs IV -ertapenem as outpatinet infusions daily x [address] Delgado recommendation (3) CHF (congestive heart failure) Comment: Chronic, systoloc, without exacerbation. Continue home regimen: coreg, digoxin, statin Holding Aldactone due to renal failure (4) HTN (hypertension) Comment: continue home regimen (5) History of kidney stones Comment: pt was on cephalexin daily for UTI supression from Dr. Stahl. Holding it when on IV antibiotics (6) Hyperthyroidism Comment: Continue methimazole.TSH 1.03 (7) DVT prophylaxis Comment: Lovenox subQ Status and Disposition: inpatient.
[2018-11-21] MEDS: Pantoprazole TAB * 40 MG TAB PO SCH (17:04)
[2018-11-21] MEDS: Finasteride TAB* 5 MG PO SCH (17:04)
[2018-11-21] MEDS: Atorvastatin* 20 MG TAB PO SCH (17:04)
[2018-11-21] MEDS: Latanoprost 0.005%* 2.5 ml BTL BOTH EYES SCH (20:17)
[2018-11-21] MEDS: Terazosin CAP* 5 MG PO SCH (20:17)
[2018-11-21] MEDS ORDERED: Enoxaparin(*) 30 MG/0.3 ML SYR SUBCUT SCH (21:00)
[2018-11-22] MEDS: Piperacillin/Tazobac ADVAN(*) 3.375 GM in NS 0.9% 100 ML* 100 ML IVPB SCH ×2 (04:25→12:28)
[2018-11-22 06:28] LABS: ABS Basophils 0 10^3/ul (0-0.2); ABS Eosinophils 0 10^3/ul (0-0.6); ABS Lymphocytes 1.4 10^3/ul (1.0-4.8); ABS Monocytes 0.8 10^3/ul (0-0.8); ABS Neutrophils 4.7 10^3/ul (1.5-7.7); ABS Nucleated RBC 0 10^3/ul; Eosinophil % 0.6 %; Hematocrit 29 % (42-52); Lymphocyte % 19.8 %; Mean Corpuscular HGB Conc 34 g/dl (31-36); Mean Corpuscular Hemoglobin 30 pg (27-31); Mean Corpuscular Volume 89 fL (80-94); Mean Platelet Volume 7.9 fL (7.4-10.4); Nucleated Red Blood Cells % 0; Platelet Count 158 10^3/ul (150-450); Red Blood Count 3.31 10^6/ul (4.00-5.40); Red Cell Distribution Width 15 % (10.5-15)
[2018-11-22 06:44] LABS: BUN/Creatinine Ratio 13.5 (8-20); Calcium 8.6 mg/dL (8.6-10.3); EGFR Non-African American 33.7 (>60); Potassium 3.7 mmol/L (3.5-5.0)
[2018-11-22] MEDS: Lactobacillus Acidophilus* 1 TAB PO SCH (08:41)
[2018-11-22] MEDS: Digoxin TAB* 0.125 MG PO SCH (08:41)
[2018-11-22] MEDS: Ropinirole TAB* 0.5 MG TAB PO SCH (08:45)
[2018-11-22] MEDS: Allopurinol TAB* 100 MG PO SCH (08:45)
[2018-11-22] MEDS: Aspirin 81 mg CHEW TAB* 81 MG TAB.CHEW PO SCH (08:45)
[2018-11-22] MEDS: Carvedilol TAB* 25 MG PO SCH (08:45)
[2018-11-22] MEDS: Insulin LISPRO* 1 UNITS UNIT SUBCUT SCH ×2 (08:47→12:27)
[2018-11-22] MEDS: Methimazole TAB* 5 MG PO SCH (10:10)
[2018-11-22] MEDS: NS 0.9% 1000 ML* 1,000 ML IV SCH (10:12)
[2018-11-22] MEDS: Insulin GLARGINE(*) 1 UNITS UNIT SUBCUT SCH (10:13)
[2018-11-22] MEDS ORDERED: traMADol TAB* 50 MG PO PRN (10:22)
[2018-11-22 12:32] VITALS: BP 107/45
--- NOTE | 2018-11-22 14:25 | PN ---
Progress Note - Progress Note Date of Service: 11/22/18 SOAP: Subjective: CC: abdominal abscess HPI: 83 year old man with diverticular abscess; abd pain resolved, no fever. Appetite is ok. Loose stools 4 times today. Objective: Vital Signs Temp 37.0 C 11/22/18 10:59 Pulse 85 11/22/18 10:59 Resp 20 11/22/18 10:59 BP 107/45 11/22/18 10:59 Pulse Ox 94 11/22/18 10:59 Intake & Output 11/21/18 11/22/18 11/22/18 18:59 06:59 18:59 Intake Total 804 0 350 Output Total 0 Balance 804 0 350 Weight 216 lb 14.4 oz Intake: IV Fluids 459 ABX - ZOSYN 25 NS 434 Oral 345 0 350 Output: Urine 0 Other: Estimated Void Medium # Bowel Movements 2 1 Estimated Stool Amount Medium # Voids 2 3 Gen:awake, no distress HEENT: no thrush Heart:RRR no murmur Lungs:CTA BL Abd:+BS NTND soft Skin: no rash Laboratory Results - last 24 hr 11/21/18 11/21/18 11/22/18 16:13 19:46 06:13 WBC RBC Hgb Hct MCV MCH MCHC RDW Plt Count MPV Neut % (Auto) Lymph % (Auto) Morris % (Auto) Eos % (Auto) Baso % (Auto) Absolute Neuts (auto) Absolute Lymphs (auto) Absolute Monos (auto) Absolute Eos (auto) Absolute Basos (auto) Absolute Nucleated RBC Nucleated RBC % Sodium 137 Potassium 3.7 Chloride 106 Carbon Dioxide 21 L Anion Gap 10 BUN 26 H Creatinine 1.92 H Est GFR ( Amer) 40.8 Est GFR (Non-Af Amer) 33.7 BUN/Creatinine Ratio 13.5 Glucose 166 H POC Glucose (mg/dL) 127 H 189 H Calcium 8.6 C-Reactive Protein 141.00 H Digoxin 1.0 11/22/18 11/22/18 11/22/18 06:13 07:25 12:03 WBC 7.0 RBC 3.31 L Hgb 10.0 L Hct 29 L MCV 89 MCH 30 MCHC 34 RDW 15 Plt Count 158 MPV 7.9 Neut % (Auto) 67.8 Lymph % (Auto) 19.8 Morris % (Auto) 11.2 Eos % (Auto) 0.6 Baso % (Auto) 0.6 Absolute Neuts (auto) 4.7 Absolute Lymphs (auto) 1.4 Absolute Monos (auto) 0.8 Absolute Eos (auto) 0 Absolute Basos (auto) 0 Absolute Nucleated RBC 0 Nucleated RBC % 0 Sodium Potassium Chloride Carbon Dioxide Anion Gap BUN Creatinine Est GFR ( Amer) Est GFR (Non-Af Amer) BUN/Creatinine Ratio Glucose POC Glucose (mg/dL) 160 H 182 H Calcium C-Reactive Protein Digoxin Assessment: 1. Diverticulitis w perforation and abscess 2. Bladder stones on keflex suppression 3. diarrhea, abx associated Plan: 1. invanz daily 10 more days w weekly cbc, cmp, crp and midline , fu me 1-2 weeks 25 minutes floor time >50% face to face in counseling w patient and regarding abx plans and side effects
--- NOTE | 2018-11-22 22:36 | DS ---
CC: Dr. Stephens; Dr. Waddell; Dr. Vergara * DISCHARGE SUMMARY: DATE OF ADMISSION: 11/19/18 DATE OF DISCHARGE: 11/22/18 PRIMARY CARE PROVIDER: Dr. Stephens. DISCHARGE DIAGNOSES: 1. Diverticulitis with intraabdominal abscess. 2. Acute renal failure, likely prerenal. SECONDARY DIAGNOSES: 1. History of diabetes, insulin-dependent. 2. History of chronic systolic congestive heart failure with EF of 25%. 3. Hypertension. 4. Neuropathy. 5. Gout. 6. History of atrial flutter, not on anticoagulation due to the history of hematuria on Xarelto. 7. History of hypothyroidism. 8. History of bladder stones, status post cystoscopies in the past. The patient is on chronic urinary tract infection suppression with cephalexin as an outpatient. MEDICATIONS: At discharge include: 1. Invanz which is ertapenem 1 g IV every 24 hours for a total of 10 days, to be started at an outpatient infusion center on 11/23/18. 2. Culturelle 1 capsule b.i.d. for a total of 30 days. The remaining medications that are discontinued/held are lisinopril and Aldactone. They were held due to acute renal failure. The remaining medications that are unchanged include: 1. Allopurinol 100 mg daily. 2. Aspirin 81 mg daily. 3. Coreg 25 mg daily in the a.m. and 50 mg q.p.m. 4. Digoxin 0.125 mg in a.m. 5. Proscar 5 mg q.p.m. 6. Lantus insulin 50 units at bedtime. 7. Xalatan eyedrops 1 drop both eyes daily. 8. Methimazole 2.5 mg q.a.m. 9. NovoLog insulin as per sliding scale. 10. Omeprazole 20 mg daily. 11. Pravachol 80 mg daily. 12. Requip 0.5 mg daily. 13. Terazosin 5 mg at bedtime. 14. Ultram 50 mg every 4 hours p.r.n. The patient is recommended to have a basic metabolic panel checked in approximately 3 days. FOLLOWUP: The patient is recommended to follow up with Dr. Vergara in approximately 1 week. He is instructed to call Dr. Vergara's office if the office has not called him with an scheduled appointment. The patient's already called Dr. Stephens for an appointment and they are awaiting response. The appointment is needed to be scheduled in approximately 4 to 7 days for a followup. DIET AT DISCHARGE: Lind. The patient is scheduled tomorrow at 8 a.m. at the infusion center for a midline placement as well as daily Invanz infusions, for which the patient is going to come to the hospital. HOSPITALIZATION COURSE: Cleveland Hanson is an 83-year-old male with history of chronic systolic CHF with low EF at 25%, hypothyroidism, diabetes insulin- dependent, who presented to the hospital complaining of crampy lower abdominal pain for the past 4 days. He was noted to have diverticulitis with 3.5 x 3 x 3.2 cm intraabdominal abscess localized close to/above the urinary bladder. The patient was placed on antibiotics and within 24 hours, his pain resolved. Dr. Waddell saw the patient in consultation from surgery. It was noted that the patient is not a good surgical candidate and he responded very well to IV antibiotics. I spoke with the radiologist service who noted that the abscess location is not amenable for percutaneous drain placement. Dr. Vergara saw the patient in consultation from Infectious Diseases. They recommended continuation of Zosyn while hospitalized and to switch the patient to Invanz for 10 days at discharge. The patient stayed in the hospital until 11/22/18 due to acute renal failure. It is suspected that acute renal failure was due to prerenal because the patient responded well to IV fluids and discontinuation of his diuretics. At this point, the patient still has 4 loose bowel movements a day and I recommended for the patient to hold his Aldactone and hold his lisinopril and to check his weights on a daily basis to make sure that he does not gain weight or he does not develop peripheral edema that would indicate congestive heart failure. If he continues to have loose bowel movements on a daily basis, he is to stay off his Aldactone and lisinopril until placed back by his primary care provider. Due to that the patient may develop exacerbation of his CHF, he should be seen by his primary care provider hopefully later this week or early next week for a followup. Please also note that the patient's CT noted prostatomegaly with signs of urinary bladder obstruction. We did postvoid residual and it was 102 mL and the patient's creatinine improved without a Lane catheter being placed. The patient has no symptoms of dysuria. By the time of discharge, the patient complained of no abdominal pain and he is going to be discharged with followup with his primary care provider as mentioned above. LABORATORY DATA: Throughout the patient's hospital stay included: 1. On 11/22/18, white blood cell count of 7.0, hemoglobin of 10.0, hematocrit of 29, and platelets of 158. 2. Sodium of 137, potassium 3.7, chloride 106, CO2 21, BUN 26, creatinine 1.92. C- reactive protein was 141 on the day of discharge and was 157 on the day of admission. 3. Urinalysis shows +1 ketones, +3 RBCs, absent bacteria, absent esterase, absent nitrates. 4. Digoxin level was 1.0 on 11/22/18. 5. CT of the abdomen and pelvis was initially performed without contrast on 10/26. Impression: "Sigmoid diverticulitis and 3.5 cm hypoattenuation area around the posterior wall of the sigmoid suspicious for fluid collection; however, evaluation is limited without contrast. There was no bowel obstruction. Hepatosteatosis. Nonobstructive calculus at the lower pole of the right kidney with multiple dependent calculi in the urinary bladder. Prostatomegaly with signs of urinary bladder outlet obstruction. The stable previously described hepatic cyst and cavernous hemangioma better characterized by comparison MRI imaging." A repeat CT obtained on the same day with contrast. Impression: "Complicated diverticulitis of the sigmoid colon with 3.5 x 3.0 x 3.2 cm abscess. There is no free air, free fluid or bowel obstruction." Please note that this is a short summary of the patient's hospital stay. Please refer to further medical records for details. TIME SPENT: Approximately 45 minutes was spent on the patient's discharge. [id number]/[facility] #: [id number] MTDD
== END 2018-11-22 15:30 | disposition home or self-care (01) | DRG 392 ==
LOC: ED 11:32 → MEDTELE 18:17
PROVIDERS: ADMIT Internal Medicine; ATTEND Internal Medicine
DX: K57.20 Diverticulitis of large intestine with perforation and abscess without bleeding (principal); N17.8 Other acute kidney failure; I50.22 Chronic systolic (congestive) heart failure; I48.92 Unspecified atrial flutter; K52.1 Toxic gastroenteritis and colitis; E11.40 Type 2 diabetes mellitus with diabetic neuropathy, unspecified; I48.0 Paroxysmal atrial fibrillation; I11.0 Hypertensive heart disease with heart failure; J44.9 Chronic obstructive pulmonary disease, unspecified; E05.90 Thyrotoxicosis, unspecified without thyrotoxic crisis or storm; K76.0 Fatty (change of) liver, not elsewhere classified; M10.9 Gout, unspecified; N21.0 Calculus in bladder; N20.0 Calculus of kidney; N32.0 Bladder-neck obstruction; T36.95XA Adverse effect of unspecified systemic antibiotic, initial encounter; Y92.230 Patient room in hospital as the place of occurrence of the external cause; Z79.82 Long term (current) use of aspirin; Z79.4 Long term (current) use of insulin; Z79.52 Long term (current) use of systemic steroids; Z79.899 Other long term (current) drug therapy; Z82.5 Family history of asthma and other chronic lower respiratory diseases; Z82.3 Family history of stroke
CPT/HCPCS: 36415; 74176; 74177; 80048; 80053; 80162; 81003; 81015; 83605; 83690; 83735; 84100; 84443; 85025; 85027; 85610; 86140; 99283; A9270-GY; J1650; J2543; Q9967

== ENCOUNTER 2020-01-09 10:25 | Inpatient (IN) | payer MEDICARE ==
--- OUTSIDE RECORDS SUMMARY | 2020-01-09 10:43 | XMS REPORT | Continuity of Care Document ---
:1935 External Reference #:[id number] Author Name Regla Rayo N.P. (transmitted by agent of provider Danielle Soliz) Address [address] [place] [address] Care Team Providers Name Role Phone Norman Stephens MD - Family Care Team Information Chart Picker [phone] Medicine Problems Active Problems Provider Date Diabetes mellitus Dustin Mays MD Onset: 01/11/2008 Note: on insulin since 2013 Cerebrovascular disease Dustin Mays MD Onset: 01/10/2014 Benign essential hypertension Gideon Remy M.D. Onset: 10/21/2011 Paroxysmal ventricular tachycardia Gideon Remy M.D. Onset: 01/15/2012 Obesity Gideon Remy M.D. Onset: 06/28/2013 Atrial flutter [place] [facility] Schedule Onset: 12/06/2013 Mitral valve disorder Gideon Remy M.D. Onset: 04/24/2014 Localized, primary osteoarthritis Maldonado More M.D. Onset: 09/12/2018 Chronic peptic ulcer Dustin Mays MD Onset: 01/10/2011 Note: while on ASA 81mg Social History Type Date Description Comments Sex Unknown Tobacco Use Start: Unknown End: Former Cigarette Smoker quite 2004 Unknown Smoking Status Reviewed: 11/20/19 Former Cigarette Smoker quite 2004 ETOH Use Occasionally consumes beer Tobacco Use Start: Unknown End: Patient is a former smoker Unknown Recreational Drug Use Denies Drug Use Exercise Type/Frequency Exercises rarely Allergies, Adverse Reactions, Alerts Description No Known Drug Allergies Medications Active Medications SIG Qnty Indications Ordering Date Provider Brimonidine Tartrate one drop in Unknown 11/19/2019 0.2% each eye at Solution night Spironolactone 1 tab by mouth 90tabs Regla Rayo, 12/26/2018 50mg Tablets every day N.P. Digox 1 by mouth 90tabs Gideon Richter 10/07/2018 125mcg Tablets every day Renay Remy Carvedilol 1 by mouth in 300tabs Gideon Richter 07/01/2015 25mg Tablets am, two in the Renay Remy evening Aspir-81 1 by mouth 100tabs Gideon Richter 07/01/[address] every day Renay Remy Lantus 35 units SQ in Unknown 12/19/2014 100Unit/ML Solution am and pm Novolog Flexpen sliding scale Unknown 12/19/2014 100Unit/ML Solution Pen-Inject Prednisone 2 by mouth qd 30tabs Other Ordering 09/30/2014 10mg Tablets as needed for Provider pain Methimazole 1/2 tablet Unknown 01/27/2009 5mg Tablets daily Finasteride 1 po qd 90tabs Unknown 12/19/2006 5mg Tablets Atorvastatin Calcium 1 by mouth 90tabs Gideon Richter 80mg every day Renay Remy Tablets Docusate Sodium 1 by mouth Unknown 250mg every day Capsules Latanoprost 1 drop in each Unknown 0.005% Solution eye at bedtime Ropinirole HCL take 1/2 tablet Unknown 1mg Tablets by mouth at bedtime Allopurinol 1 by mouth Unknown 300mg Tablets every day Vitamin C 1 by mouth Unknown 500mg Tablets every day Tramadol HCL 1-2 tablets Unknown 50mg Tablets every 6 hours as needed Omeprazole 1 po qd 30caps Unknown 20mg Capsules Terazosin HCL 1 po qd 90caps Unknown 5mg Capsules History Medications Lisinopril 1/2 by mouth 90tabs I42.9 Gideon Richter 10/03/2019 - 2.5mg every day (pt Renay Remy 11/20/2019 Tablets stopped waiting for advice.) Medications Administered in Office Medication SIG Qnty Indications Ordering Provider Date Depomedrol 40MG Dirk Derik, M.D. 09/12/2018 Injection Depomedrol 40MG Maldonado More M.D. 04/18/2018 Injection Depomedrol 40MG Maldonado More M.D. 12/20/2017 Injection Depomedrol 40MG Maldonado More M.D. 08/18/2017 Injection Depomedrol 80MG Maldonado More M.D. 02/11/2015 Injection Depomedrol 80MG Maldonado More M.D. 01/10/2014 Injection Depomedrol 80MG Maldonado More M.D. 07/17/2013 Injection Depomedrol 80MG Maldonado More M.D. 03/13/2013 Injection Depomedrol 80MG Maldonado More M.D. 12/19/2012 Injection Depomedrol 80MG Maldonado More M.D. 07/18/2012 Injection Depomedrol 80MG Maldonado More M.D. 02/24/2012 Injection Immunizations Description No Information Available Vital Signs Date Vital Result Comment 11/20/2019 10:57am Height 7272 inches 606'0" Weight 213.25 lb Heart Rate 88 /min right radial BP Systolic Sitting 106 mmHg ure reg cuff BP Diastolic Sitting 62 mmHg ure reg cuff BMI (Body Mass Index) 0.0 kg/m2 Ejection Fraction 20-25% Echo 11/16/19 10/03/2019 11:41am Height 72 inches 6'0" Weight 211.12 lb with shoes Heart Rate 80 /min BP Systolic Sitting 140 mmHg Lue (regular cuff) BP Diastolic Sitting 68 mmHg Lue (regular cuff) BP Systolic Standing 138 mmHg BP Diastolic Standing 68 mmHg BP Systolic Lying Down 108 mmHg la repeat sitting BP Diastolic Lying Down 60 mmHg la repeat sitting BMI (Body Mass Index) 28.6 kg/m2 Ejection Fraction 20-25% closer to 20% Echocardiogram 08/22/2018 Results Test Acquired Date Facility Test Result H/L Range Note Lipid Panel - 11/17/2019 [facility] Creatine 29 U/L Normal 10- [address] Kinase(CK) [place], [place] [id number] [phone] Comp Metabolic 11/17/2019 [facility] Sodium 138 mmol/L Normal 135-[address] [place] [address] [phone] Potassium 4.5 mmol/L Normal 3.5-5.0 Chloride 102 mmol/L Normal 101-111 Co2 Carbon Dioxide 28 mmol/L Normal 22-32 Anion Gap 8 mmol/L Normal 2-11 Glucose 188 mg/dL High 70-100 Blood Urea Nitrogen 19 mg/dL Normal 6-24 Creatinine 0.84 mg/dL Normal 0.67-1.17 BUN/Creatinine Ratio 22.6 High 8-20 Calcium 9.3 mg/dL Normal 8.6-10.3 Total Protein 6.4 g/dL Normal 6.4-8.9 Albumin 3.8 g/dL Normal 3.2-5.2 Globulin 2.6 g/dL Normal 2-4 Albumin/Globulin Ratio 1.5 Normal 1-3 Total Bilirubin 0.70 mg/dL Normal 0.2-1.0 Alkaline Phosphatase 62 U/L Normal 34-104 Alt 18 U/L Normal 7-52 Ast 14 U/L Normal 13-39 Egfr Non- 87.3 >60 Egfr 105.6 >60 2 Lipid Profile 11/17/2019 [facility] Triglycerides 166 mg/dL 3 (Trig/Chol/HDL) [address] [place] [address] [phone] Cholesterol 164 mg/dL 4 HDL Cholesterol 50.3 mg/dL 5 LDL Cholesterol 81 mg/dL 6 Order 11/16/2019 [facility] Echocardiogram <pending> [address] [place] [address] [phone] CBC Auto 10/18/2019 [facility] White Blood Count 9.2 10^3/uL Normal 3.5- Diff [address] [place], [place] [id number] [phone] Red Blood Count 4.29 10^6/uL Normal 4.18-5.48 Hemoglobin 13.3 g/dL Low 14.0-18.0 Hematocrit 39 % Low 42-52 Mean Corpuscular Volume 91 fL Normal 80-94 Mean Corpuscular Hemoglobin 31 pg Normal 27-31 Mean Corpuscular HGB Conc 34 g/dL Normal 31-36 Red Cell Distribution Width 16 % High 10-15 Platelet Count 180 10^3/uL Normal 150-450 Mean Platelet Volume 9.0 fL Normal 7.4-10.4 Abs Neutrophils 7.4 10^3/uL Normal 1.5-7.7 Abs Lymphocytes 1.2 10^3/uL Normal 1.0-4.8 Abs Monocytes 0.7 10^3/uL Normal 0-0.8 Abs Eosinophils 0.0 10^3/uL Normal 0-0.6 Abs Basophils 0.0 10^3/uL Normal 0-0.2 Abs Nucleated RBC 0.0 10^3/uL Granulocyte % 79.6 % Lymphocyte % 12.9 % Monocyte % 7.3 % Eosinophil % 0.0 % Basophil % 0.2 % Nucleated Red Blood Cells % 0.0 Laboratory test 10/18/2019 [facility] Digoxin 0.7 ng/ml Low 0.8-2.[address] [place] [address] [phone] Lipid Panel - 10/18/2019 [facility] Creatine 23 U/L Normal 10- [address] Kinase(CK) [place] [address] [phone] Comp Metabolic 10/18/2019 [facility] Sodium 136 mmol/L Normal 135-[address] [place] [address] [phone] Potassium 4.7 mmol/L Normal 3.5-5.0 Chloride 99 mmol/L Low 101-111 Co2 Carbon Dioxide 28 mmol/L Normal 22-32 Anion Gap 9 mmol/L Normal 2-11 Glucose 263 mg/dL High 70-100 Blood Urea Nitrogen 19 mg/dL Normal 6-24 Creatinine 0.91 mg/dL Normal 0.67-1.17 BUN/Creatinine Ratio 20.9 High 8-20 Calcium 9.0 mg/dL Normal 8.6-10.3 Total Protein 6.6 g/dL Normal 6.4-8.9 Albumin 3.8 g/dL Normal 3.2-5.2 Globulin 2.8 g/dL Normal 2-4 Albumin/Globulin Ratio 1.4 Normal 1-3 Total Bilirubin 0.80 mg/dL Normal 0.2-1.0 Alkaline Phosphatase 62 U/L Normal 34-104 Alt 18 U/L Normal 7-52 Ast 12 U/L Low 13-39 Egfr Non- 79.6 >60 Egfr 96.3 >60 7 Lipid Profile 10/18/2019 [facility] Triglycerides 230 mg/dL 8 (Trig/Chol/HDL) [address] [place] [address] [phone] Cholesterol 226 mg/dL 9 HDL Cholesterol 50.9 mg/dL 10 LDL Cholesterol 129 mg/dL 11 Urine Microalbumin 10/18/2019 [facility] Ur Microalbumin 38.5 mg /L Random [address] (mg/L) [place] [address] [phone] Urine Creatinine 92.10 mg/dL Urine Microalbumin/Creatinine 41.8 High <31 Liver Function 10/18/2019 [facility] Total Protein 6.6 g/dL Normal 6.4-8.[address] [place] [address] [phone] Albumin 3.8 g/dL Normal 3.2-5.2 Globulin 2.8 g/dL Normal 2-4 Albumin/Globulin Ratio 1.4 Normal 1-3 Total Bilirubin 0.80 mg/dL Normal 0.2-1.0 Direct Bilirubin 0.10 mg/dL Normal 0.03-0.18 Indirect Bilirubin 0.7 mg/dL Normal 0.3-1.0 Alkaline Phosphatase 62 U/L Normal 34-104 Alt 18 U/L Normal 7-52 Ast 12 U/L Low 13-39 Laboratory test 10/18/2019 [facility] Vitamin B12 306 pg/mL Normal 180-914 12 finding [address] [place] [address] [phone] 1 FASTING in 2 m Copy Result to: NORMAN STEPHENS ([id number]) 2 Because ethnic data is not always readily available, this report includes an eGFR for both -Americans and non- Americans. The National Kidney Disease Education Program (NKDEP) does not endorse the use of the MDRD equation for patients that are not between the ages of 18 and 70, are , have extremes of body size, muscle mass, or nutritional status, or are non- or non-. According to the National Kidney Foundation, irrespective of diagnosis, the stage of the disease is based on the level of kidney function: Stage Description GFR(mL/min/1.73 m(2)) 1 Kidney damage with normal or decreased GFR 90 2 Kidney damage with mild decrease in GFR 60-89 3 Moderate decrease in GFR 30-59 4 Severe decrease in GFR 15-29 5 Kidney failure <15 (or dialysis) 3 Desirable: <150 Borderline High: 150-199 High: 200-499 Very High: >500 4 Desirable: <200 Borderline High: 200-239 High: >239 5 Low: <40 Desirable: 40-60 High: >60 6 Desirable: <100 Near Optimal: 100-129 Borderline High: 130-159 High: 160-189 Very High: >189 7 Because ethnic data is not always readily available, this report includes an eGFR for both -Americans and non- Americans. The National Kidney Disease Education Program (NKDEP) does not endorse the use of the MDRD equation for patients that are not between the ages of 18 and 70, are , have extremes of body size, muscle mass, or nutritional status, or are non- or non-. According to the National Kidney Foundation, irrespective of diagnosis, the stage of the disease is based on the level of kidney function: Stage Description GFR(mL/min/1.73 m(2)) 1 Kidney damage with normal or decreased GFR 90 2 Kidney damage with mild decrease in GFR 60-89 3 Moderate decrease in GFR 30-59 4 Severe decrease in GFR 15-29 5 Kidney failure <15 (or dialysis) 8 Desirable: <150 Borderline High: 150-199 High: 200-499 Very High: >500 9 Desirable: <200 Borderline High: 200-239 High: >239 10 Low: <40 Desirable: 40-60 High: >60 11 Desirable: <100 Near Optimal: 100-129 Borderline High: 130-159 High: 160-189 Very High: >189 12 Normal Range 180 to 914 Indeterminate Range 145 to 180 Deficient Range <145 Procedures Date Code Description Status 11/16/2019 61433 ECHO Transthoracic, Real-Time 2D With Doppler And Color Completed Flow 10/03/2019 22442 EKG Tracing & Interpretation Completed Medical Devices Description No Information Available Encounters Type Date Location Provider Dx Diagnosis Office Visit 11/20/2019 [facility] Regla Rayo, I42.9 Cardiomyopathy, 11:00a N.P. unspecified I34.0 Nonrheumatic mitral (valve) insufficiency I48.0 Paroxysmal atrial fibrillation I35.0 Nonrheumatic aortic (valve) stenosis E78.00 Pure hypercholesterolemia, unspecified Office Visit 10/03/2019 11:20a [facility] Gideon Richter I34.0 Nonrheumatic mitral Cardiology Renay Remy (valve) insufficiency I42.9 Cardiomyopathy, unspecified E08.01 Diabetes due to underlying condition w hyprosm w coma I48.0 Paroxysmal atrial fibrillation I35.0 Nonrheumatic aortic (valve) stenosis Assessments Date Code Description Provider 11/20/2019 I42.9 Cardiomyopathy, unspecified Regla S. Foster, N.P. 11/20/2019 I34.0 Nonrheumatic mitral (valve) insufficiency Regla S. Foster, N.P. 11/20/2019 I48.0 Paroxysmal atrial fibrillation Regla S. Foster, N.P. 11/20/2019 I35.0 Aortic valve stenosis Regla S. Foster, N.P. 11/20/2019 E78.00 Pure hypercholesterolemia, unspecified Regla S. Girma, N.P. 11/16/2019 I42.9 Cardiomyopathy, unspecified [place] [facility] Schedule 10/03/2019 I34.0 Nonrheumatic mitral (valve) insufficiency Gideon Remy M.D. 10/03/2019 I42.9 Cardiomyopathy, unspecified Gideon Remy M.D. 10/03/2019 E08.01 Diabetes mellitus due to underlying Gideon Remy M.D. condition with hyperosmo 10/03/2019 I48.0 Paroxysmal atrial fibrillation Gideon Remy M.D. 10/03/2019 I35.0 Aortic valve stenosis Gideon Remy M.D. Plan of Treatment Future Appointment(s):04/09/2020 11:40 am - Gideon [facility] M[facility] at [facility]11/20/2019 - Regla Rayo, N.P.I42.9 Cardiomyopathy, unspecifiedRecommendations:STOP Lisinopril Re-increase Spironolactone to 50mg Pump function stable.I34.0 Nonrheumatic mitral (valve) gnwkzjmoczycyT21.0 Paroxysmal atrial fibrillationNew Labs:Magnesium, Ordered: 11/20/19I35.0 Aortic valve jmonmyqtR27.00 Pure hypercholesterolemia, unspecifiedFollow up:OV [facility] 2019 as scheduled. see if Mg level can be added on to labs from Recommendations:Lipids close goal Functional Status Description No Information Available Mental Status Description No Information Available Referrals Description No Information Available
--- OUTSIDE RECORDS SUMMARY | 2020-01-09 10:43 | XMS REPORT | Continuity of Care Document ---
:1935 External Reference #:[id number] Author Name Regla Rayo N.P. (transmitted by agent of provider Danielle Soliz) Address [address] [place] [address] Care Team Providers Name Role Phone Norman Stephens MD - Family Care Team Information Commissary Superintendent [phone] Medicine Problems Active Problems Provider Date Diabetes mellitus Dustin Mays MD Onset: 01/11/2008 Note: on insulin since 2013 Cerebrovascular disease Dustin Mays MD Onset: 01/10/2014 Benign essential hypertension Gideon Remy M.D. Onset: 10/21/2011 Paroxysmal ventricular tachycardia Gideon Remy M.D. Onset: 01/15/2012 Obesity Gideon Remy M.D. Onset: 06/28/2013 Atrial flutter [facility] E[facility] Schedule Onset: 12/06/2013 Mitral valve disorder [...] H/L Range Note Lipid Panel - 11/17/2019 [facility] Creatine 29 U/L Normal 10- 223 [address] Kinase(CK) [place], [place] [id number] [phone] Comp Metabolic 11/17/2019 [facility] Sodium 138 mmol/L Normal 135-[address] [place] [address] [phone] Potassium 4.5 mmol/L Normal 3.5-5.0 Chloride 102 [...] Egfr 105.6 >60 2 Lipid Profile 11/17/2019 [facility] Triglycerides 166 mg/dL 3 (Trig/Chol/HDL) [address] [place] [address] [phone] Cholesterol 164 mg/dL 4 HDL Cholesterol 50.3 mg/dL 5 LDL Cholesterol 81 mg/dL 6 Order 11/16/2019 [facility] Echocardiogram <pending> [address] [facility] [address] [address] [place] [address] [phone] CBC Auto 10/18/2019 [facility] White Blood Count 9.2 10^3/uL Normal 3.5- Diff [address] [place], [place] [id number] [phone] Red Blood Count 4.29 10^6/uL Normal 4.18-5.48 [...] Blood Cells % 0.0 Laboratory test 10/18/2019 [facility] Digoxin 0.7 ng/ml Low 0.8-2.[address] [place] [address] [phone] Lipid Panel - 10/18/2019 [facility] Creatine 23 U/L Normal 10- [address] Kinase(CK) [place] [address] [phone] Comp Metabolic 10/18/2019 [facility] Sodium 136 mmol/L Normal 135-[address] [place] [address] [phone] Potassium 4.7 mmol/L Normal 3.5-5.0 Chloride 99 [...] Egfr 96.3 >60 7 Lipid Profile 10/18/2019 [facility] Triglycerides 230 mg/dL 8 (Trig/Chol/HDL) [address] [place] [address] [phone] Cholesterol 226 mg/dL 9 HDL Cholesterol 50.9 mg/dL 10 LDL Cholesterol 129 mg/dL 11 Urine Microalbumin 10/18/2019 [facility] Ur Microalbumin 38.5 mg /L Random [address] (mg/L) [place] [address] [phone] Urine Creatinine 92.10 mg/dL Urine Microalbumin/Creatinine 41.8 High <31 Liver Function 10/18/2019 [facility] Total Protein 6.6 g/dL Normal 6.4-8.[address] [place] [address] [phone] Albumin 3.8 g/dL Normal 3.2-5.2 Globulin 2.8 g/dL Normal 2-4 Albumin/Globulin Ratio 1.4 Normal 1-3 Total Bilirubin 0.80 mg/dL Normal 0.2-1.0 Direct Bilirubin 0.10 mg/dL Normal 0.03-0.18 Indirect Bilirubin 0.7 mg/dL Normal 0.3-1.0 Alkaline Phosphatase 62 U/L Normal 34-104 Alt 18 U/L Normal 7-52 Ast 12 U/L Low 13-39 Laboratory test 10/18/2019 [facility] Vitamin B12 306 pg/mL Normal 180-914 12 finding [address] [place] [address] [phone] 1 FASTING in 2 m Copy Result to: NORMAN STEPHENS ([id number]) 2 Because ethnic data is not always [...] <145 Procedures Date Code Description Status 11/16/2019 24564 ECHO Transthoracic, Real-Time 2D With Doppler And Color Completed Flow 10/03/2019 10528 EKG Tracing & Interpretation Completed Medical Devices Description No Information Available Encounters Type Date Location Provider Dx Diagnosis Office Visit 11/20/2019 [facility] Regla Rayo, I42.9 Cardiomyopathy, 11:00a N.P. unspecified I34.0 Nonrheumatic mitral (valve) insufficiency I48.0 Paroxysmal atrial fibrillation I35.0 Nonrheumatic aortic (valve) stenosis E78.00 Pure hypercholesterolemia, unspecified Office Visit 10/03/2019 11:20a [facility] Gideon Richter I34.0 Nonrheumatic mitral Cardiology Renay [...] 11:40 am - Gideon Remy M.D. at [facility]11/20/2019 - Regla Rayo, N.P.I42.9 Cardiomyopathy, unspecifiedRecommendations:STOP Lisinopril Re-increase Spironolactone to 50mg Pump function stable.I34.0 Nonrheumatic mitral (valve) tmhnxapsbdlvdK71.0 Paroxysmal atrial fibrillationNew Labs:Magnesium, Ordered: 11/20/19I35.0 Aortic valve yjceqnifT87.00 Pure hypercholesterolemia, unspecifiedFollow up:OV [facility] 2019 as scheduled. see if Mg level can be added on to labs from Recommendations:Lipids close goal Functional Status Description No Information Available Mental Status Description No Information Available Referrals Description No Information Available
--- NOTE | 2020-01-09 10:56 | ED ---
Complex/Multi-Sys Presentation - HPI Summary HPI Summary: Patient is an 84 y/o M presenting to [facility] via EMS with complaints of nausea, constipation, decreased appetite, abdominal soreness, SOB, and CP. He claims that he has not had a bowel movement since 01/06/20 and has not eaten since either 01/04 or 01/05. Hx of diabetes reported, patient states that he has not been taking his insulin as he has not been eating. EMS reports BG of 131. Patient notes that he has been passing gas. Vomiting is denied. No Hx of abdominal surgeries reported. Patient reports SOB and EMS notes that the patient had o2 saturation in the low 80s RA upon their arrival. Patient was placed on 3 L o2 NC with reported improvement to 95% o2 saturation. Patient denies fever and cough. Hx of COPD and asthma are denied, but the patient states that he has a low ejection fracture. Patient notes chest pain as well; he characterizes his CP as a gaseous sensation and states that it resolves with burping. Home medications and allergies are reviewed. - History Of Current Complaint Chief Complaint: EDGeneral Hx Obtained From: Patient Onset/Duration: Lasting Days Timing: Days Location: Pain At: - chest, abdomen Character: Pressure - gaseous Alleviating Factor(s): burping alleviates CP Associated Signs And Symptoms: Positive: SOB, Chest Pain, Nausea, Abdominal Pain - soreness, Other - positive - constipation, decreased appetite. Negative : Cough, Vomiting, Fever - Allergies/Home Medications Allergies/Adverse Reactions: Allergies Allergy/AdvReac Type Severity Reaction Status Date / Time pregabalin [From Lyrica] Allergy See Comment Verified 01/09/20 10:30 Home Medications: Home Medications Carvedilol TAB* [Coreg TAB*] 25 mg PO QAM 11/07/13 [History Confirmed 01/09/20] Finasteride TAB* [Proscar TAB*] 5 mg PO QPM 11/07/13 [History Confirmed 01/09/20 ] Omeprazole CAP (NF) [Prilosec CAP* 20 MG] 20 mg PO DAILY 11/07/13 [History Confirmed 01/09/20] Terazosin CAP* [Hytrin CAP 5 MG*] 5 mg PO BEDTIME 11/07/13 [History Confirmed ] Digoxin TAB* [Lanoxin TAB*] 0.125 mg PO QAM 08/21/15 [History Confirmed 01/09/20 ] Latanoprost 0.005% OPTH (NF) [Xalatan 0.005% OPTH*] 1 drop BOTH EYES BEDTIME [History Confirmed 01/09/20] Methimazole TAB* [Tapazole TAB*] 1.25 mg PO QAM 08/21/15 [History Confirmed 01/25] Ropinirole TAB* [Requip TAB*] 0.5 tab PO DAILY 08/21/15 [History Confirmed 01/08] Tramadol HCl [Ultram] 50 mg PO QPM PRN 08/21/15 [History Confirmed 01/09/20] Allopurinol TAB* [Zyloprim 100 MG TAB*] 100 mg PO DAILY 01/09/20 [History Confirmed 01/09/20] Aspirin EC TAB* [Ecotrin EC Low Dose 81 MG*] 81 mg PO DAILY 01/09/20 [History Confirmed 01/09/20] Atorvastatin* [Lipitor*] 85 mg PO DAILY 01/09/20 [History Confirmed 01/09/20] Brimonidine P 0.1%(NF) [Alphagan P 0.1% (NF)] 1 drop BOTH EYES BID 01/09/20 [ History Confirmed 01/09/20] Carvedilol TAB* [Coreg TAB*] 50 mg PO QPM 01/09/20 [History Confirmed 01/09/20] Insulin ASPART (NF) [Novolog 100 units/ml 10 ml VIAL (NF)] 0 units SUBCUT TID [History Confirmed 01/09/20] Insulin Glargine,Hum.rec.anlog [Lantus 100 units/ml 10 ml VIAL (*)] 35 unit SUBCUT BID 01/09/20 [History Confirmed 01/09/20] predniSONE 10 mg TAB [Deltasone 10 MG TAB*] 20 mg PO DAILY PRN 01/09/20 [ History Confirmed 01/09/20] PMH/Surg Hx/FS Hx/Imm Hx Endocrine/Hematology History: Reports: Hx Diabetes, Hx Thyroid Disease - HX OF OVERACTIVE THYROID- NODULE, 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, Hx Anemia - HX OF Denies: Hx Systemic Lupus Erythematosus Cardiovascular History: Reports: Hx Congestive Heart Failure, Hx Coronary Artery Disease, Hx Hypertension, Other Cardiovascular Problems/Disorders - HX OF ATRIAL FLUTTER Denies: Hx Pacemaker/ICD Respiratory History: Reports: Other Respiratory Problems/Disorders - PNEUMONIA 2006 Denies: Hx Asthma, Hx Chronic Obstructive Pulmonary Disease (COPD) GI History: Reports: Hx Ulcer - 2010 History: Reports: Hx Kidney Stones - BLADDER STONES Denies: Hx Renal Disease Musculoskeletal History: Reports: Hx Arthritis - BACK AND LEFT KNEE Denies: Hx Rheumatoid Arthritis Sensory History: Reports: Hx Contacts or Glasses - GLASSES, Hx Hearing Aid, Hx Hearing Problem Denies: Hx Cataracts, Hx Eye Prosthesis, Hx Glaucoma, Hx Legally Blind, Hx Vision Problem Opthamlomology History: Reports: Hx Contacts or Glasses - GLASSES Denies: Hx Cataracts, Hx Eye Prosthesis, Hx Glaucoma, Hx Legally Blind, Hx Vision Problem Neurological History: Reports: Hx Nerve Disease - "PINCHED NERVE" NECK Denies: Hx Dementia, Hx Developmental Delay, Hx Headaches, Hx Migraine Psychiatric History: Reports: Hx Anxiety Denies: Hx Panic Disorder - Surgical History Surgery Procedure, Year, and Place: 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; ENDARECTOMY CAROTID 05/31/2014 @ [facility], ABLATION CARDIAC, CARDIO-VERSION Xs2 ;cystoscopy Hx Anesthesia Reactions: No - Immunization History Immunizations Up to Date: Yes Infectious Disease History: No Infectious Disease History: Denies: Hx Clostridium Difficile, Hx Hepatitis, Hx Human Immunodeficiency Virus (HIV), Hx of Known/Suspected MRSA, Hx Shingles, Hx Tuberculosis, Hx Known/ Suspected VRSA, Traveled Outside the [place] in Last 30 Days - Family History Known Family History: Positive: Diabetes - Social History Alcohol Use: None Hx Substance Use: No Substance Use Type: Reports: None Hx Tobacco Use: No Smoking Status (MU): Never Smoked Tobacco Type: Cigarettes Amount Used/How Often: 1 PPD X 40 YEARS Length of Time of Smoking/Using Tobacco: 1 PPD/30 YRS Have You Smoked in the Last Year: No Review of Systems Negative: Fever Positive: Chest Pain Positive: Shortness Of Breath. Negative: Cough Positive: Abdominal Pain - soreness , Other - decreased appetite, constipation but passing gas . Negative: Vomiting All Other Systems Reviewed And Are Negative: Yes Physical Exam - Summary Physical Exam Summary: VITAL SIGNS: Reviewed. GENERAL: Patient is a well-developed and nourished male who is lying comfortable in the stretcher. Patient is not in any acute respiratory distress. HEAD AND FACE: No signs of trauma. No ecchymosis, hematomas or skull depressions. No sinus tenderness. EYES: PERRLA, EOMI x 2, No injected conjunctiva, no nystagmus. EARS: Hearing grossly intact. Ear canals and tympanic membranes are within normal limits. MOUTH: Oropharynx within normal limits. NECK: Supple, trachea is midline, no adenopathy, no JVD, no carotid bruit, no c- spine tenderness, neck with full ROM. CHEST: Symmetric, no tenderness at palpation. LUNGS: Decreased breath sounds. No wheezing or crackles. CVS: Regular rate and rhythm, S1 and S2 present, no murmurs or gallops appreciated. ABDOMEN: Soft, non-tender. Abdominal distention noted. No rebound, no guarding, and no masses palpated. Bowel sounds are normal. EXTREMITIES: FROM in all major joints, no edema, no cyanosis or clubbing. NEURO: Alert and oriented x 3. No acute neurological deficits. Speech is normal and follows commands. SKIN: Dry and warm. Triage Information Reviewed: Yes Vital Signs On Initial Exam: Initial Vitals Pulse Resp Pulse Ox 107 18 92 01/09/20 10:30 01/09/20 10:30 01/09/20 10:30 Vital Signs Reviewed: Yes Procedures - Sedation Patient Received Moderate/Deep Sedation with Procedure: No Diagnostics - Vital Signs Vital Signs Temp Pulse Resp BP Pulse Ox 01/09/20 10:31 97.9 F 109 25 114/70 94 01/09/20 10:30 107 18 92 - Laboratory Result Diagrams: 01/09/20 10:52 01/09/20 10:52 Lab Statement: Any lab studies that have been ordered have been reviewed, and results considered in the medical decision making process. - Radiology CXR Radiology Interpretation Completed By: Radiologist Summary of Radiographic Findings: CXR IMPRESSION: #. The constellation of findings is most consistent with alveolar pulmonary edema. Correlate with clinical assessment as simultaneous bronchopneumonia is not excluded. THIS REPORT WAS REVIEWED BY ED PHYSICIAN. ABDOMEN X-RAY Radiology Interpretation Completed By: Radiologist Summary of Radiographic Findings: ABDOMEN X-RAY IMPRESSION: #. Negative for bowel obstruction. THIS REPORT WAS REVIEWED BY ED PHYSICIAN - EKG 1041 Cardiac Rate: Tachycardia - rate of 110 BPM EKG Rhythm: Sinus Tachycardia EKG Comparison: No Significant Change - no changes compared to EKG done on 11/07. Summary of EKG Findings: EKG showed sinus tachycardia with rate of 110 BPM, no changes compared to EKG done on 11/07/13. Complex Multi-Symp Course/Dx Assessment/Plan: Patient is an 84 y/o M presenting to [facility] via EMS with complaints of nausea, constipation, decreased appetite, abdominal soreness, SOB , and CP. He claims that he has not had a bowel movement since 01/06/20 and has not eaten since either 01/04 or 01/05. Hx of diabetes reported, patient states that he has not been taking his insulin as he has not been eating. EMS reports BG of 131. Patient notes that he has been passing gas. Vomiting is denied. No Hx of abdominal surgeries reported. Patient reports SOB and EMS notes that the patient had o2 saturation in the low 80s RA upon their arrival. Patient was placed on 3 L o2 NC with reported improvement to 95% o2 saturation. Patient denies fever and cough. Hx of COPD and asthma are denied, but the patient states that he has a low ejection fracture. Patient notes chest pain as well; he characterizes his CP as a gaseous sensation and states that it resolves with burping. Home medications and allergies are reviewed. In the ED course the patient was placed on a manager cardiac cath, IV access was obtained. Past medical records reviewed. Blood test w/o a significant abnormality except for hemoglobin 13, hematocrit 38, sodium 133, chloride 97, BUN is 37, glucose is 152 , magnesium 1.8, total bili is 1.8, alkaline phosphatase 128 troponin 0.08 and BNP 953. EKG is a sinus tachycardia. EKG is unchanged from previous EKG. The patient was given aspirin for the increased troponin and chest pain. I held the beta angela and the nitro since the patient is with soft blood pressures. Blood pressure is 100/67. I also held the lasix due to low blood pressure. CXR IMPRESSION: #. The constellation of findings is most consistent with alveolar pulmonary edema. Correlate with clinical assessment as simultaneous bronchopneumonia is not excluded. Abdominal x ray IMPRESSION: #. Negative for bowel obstruction. I discuss my physical exam and test results with Dr. Kaur from the hospitalist services and she agrees to admit the patient to her services. The patient is hemodynamically stable alert and oriented x 3. - Diagnoses Provider Diagnoses: Pulmonary edema, CHF (congestive heart failure), Constipation, Anemia - Physician Notifications Discussed Care Of Patient With: Yary Kaur Time Discussed With Above Provider: 11:43 Instructed by Provider To: Other - Patient's case was discussed with Dr. Kaur , Dr. Kaur accepts for admission Discharge ED - Sign-Out/Discharge Documenting (check all that apply): Patient Departure - admit - Discharge Plan Condition: Stable Disposition: ADMITTED TO [facility] - Billing Disposition and Condition Condition: STABLE Disposition: Admitted to [facility] - Attestation Statements Document Initiated by Idrisibe: Yes Documenting Scribe: KATHY SHEN Provider For Whom Baltazar is Documenting (Include Credential): MARISA WHITTAKER MD Scribe Attestation: I, KATHY SHEN, scribed for MARISA WHITTAKER MD on 01/09/20 at 1519. Scribe Documentation Reviewed: Yes Provider Attestation: The documentation as recorded by the KATHY berrios accurately reflects the service I personally performed and the decisions made by mo, MARISA WHITTAKER MD Status of Scribe Document: Viewed
[2020-01-09 11:04] LABS: ABS Lymphocytes 0.8 10^3/ul (1.0-4.8); ABS Neutrophils 7.1 10^3/ul (1.5-7.7); Hematocrit 38 % (42-52); Lymphocyte % 8.8 %; Mean Corpuscular HGB Conc 34 g/dL (31-36); Mean Corpuscular Hemoglobin 31 pg (27-31); Mean Corpuscular Volume 91 fL (80-94); Nucleated Red Blood Cells % 0.1; Platelet Count 222 10^3/uL (150-450); Red Blood Count 4.23 10^6 /uL (4.18-5.48); Red Cell Distribution Width 16 % (10-15); White Blood Count 8.9 10^3/uL (3.5-10.8)
[2020-01-09 11:28] LABS: Albumin 3.4 g/dL (3.2-5.2); Albumin/Globulin Ratio 1.1 (1-3); BUN/Creatinine Ratio 40.2 (8-20); Calcium 9.2 mg/dL (8.6-10.3); EGFR African American 95.1 (>60); EGFR Non-African American 78.6 (>60); Globulin 3.2 g/dL (2-4); Magnesium 1.8 mg/dL (1.9-2.7); Potassium 4.5 mmol/L (3.5-5.0); Total Bilirubin 1.8 mg/dL (0.2-1.0); Total Protein 6.6 g/dL (6.4-8.9)
[2020-01-09 11:32] LABS: Troponin I 0.08 ng/mL (<0.03)
[2020-01-09] MEDS ORDERED: Aspirin 81 mg CHEW TAB* 81 MG TAB.CHEW PO ONE (11:33)
[2020-01-09 11:50] LABS: TSH (Thyroid Stimulating Horm) 0.49 mcIU/mL (0.34-5.60)
[2020-01-09] MEDS ORDERED: Magnesium Oxide TAB* 400 MG PO ONE (12:16)
[2020-01-09 12:29] LABS: Urine Appearance Cloudy; Urine Bilirubin Negative (Negative); Urine Blood 1+ (Negative); Urine Color Yellow; Urine Glucose Negative (Negative); Urine Ketones 1+ (Negative); Urine Nitrite Negative (Negative); Urine Protein Negative (Negative); Urine Specific Gravity 1.018 (1.010-1.030); Urine Urobilinogen Negative (Negative)
[2020-01-09 12:35] LABS: Urine Bacteria Absent (Absent); Urine Red Blood Cell 2+(6-10/hpf) (Absent); Urine Squamous Epithelial Cell Present (Absent); Urine White Blood Cell Trace(0-5/hpf) (Absent)
[2020-01-09 12:43] LABS: C Reactive Protein 158.75 mg/L (<8.01)
[2020-01-09] MEDS ORDERED: Acetaminophen TAB* 325 MG PO PRN (13:39)
[2020-01-09 14:08] LABS: Troponin I 0.07 ng/mL (<0.03)
[2020-01-09] MEDS ORDERED: Furosemide IV* 10 MG/ML 2 ML VIAL (20 MG) IV ONE (14:19)
[2020-01-09 15:16] LABS: Digoxin 1.7 ng/ml (0.8-2.0)
[2020-01-09 16:19] LABS: Influenza A Molecular Negative (Negative); Influenza B Molecular Negative (Negative)
[2020-01-09] MEDS: Enoxaparin(*) 40 MG/0.4 ML SYR SUBCUT SCH (17:01)
[2020-01-09] MEDS ORDERED: Dextrose 50% Syringe 50 ML* 25 GM/50 ML SYRINGE IV PUSH PRN (17:27)
[2020-01-09] MEDS ORDERED: Carvedilol TAB* 25 MG PO SCH (18:00)
[2020-01-09] MEDS: Finasteride TAB* 5 MG PO SCH (18:02)
[2020-01-09] MEDS: cefTRIAXone(*) 1 GM in NS 0.9% 50 ML* 50 ML IVPB SCH (18:04)
[2020-01-09 18:09] LABS: Troponin I 0.08 ng/mL (<0.03)
--- NOTE | 2020-01-09 18:19 | HP ---
CC: Dr. Remy; Dr. Stephens * HISTORY AND PHYSICAL: DATE OF ADMISSION: 01/09/20 PROVIDER: Krystle Ramon NP. PRIMARY CARE PROVIDER: Dr. Stephens. ATTENDING PHYSICIAN WHILE IN THE HOSPITAL: Dr. Yary Kaur * (dictated by Krystle Ramon NP). CHIEF COMPLAINT: 1. Shortness of breath. 2. Fatigue. 3. Abdominal pain. HISTORY OF PRESENT ILLNESS: Mr. Hanson is an 84-year-old male with a past medical history significant for coronary artery disease, with reduced ejection fraction of 20% to 25%, 11/16/2019 ECHO, history of congestive heart failure, hyperthyroid, history of diverticulitis, history of diabetes, who presented to the emergency room with complaints of generalized weakness, fatigue, abdominal pain, and shortness of breath. The patient and his report that last and Wednesday the patient was feeling fatigued. He slept most of the day and Wednesday, has had a decreased appetite and not taking a significant amount of oral fluids. Wednesday and Wednesday, the patient remained fatigued. He would sit in a chair hunched forward with decreased ambition. The patient reports initially on he was having issues with constipation and lower abdominal pain. He called his primary care provider who had recommended MiraLAX. The patient took MiraLAX and had good results after having the MiraLAX. The patient continued to feel fatigued, so he called his primary care provider on Wednesday and was scheduled to see him in the office today, but due to the patient having dizziness and continuing to feel fatigued and weak, he presented to the emergency room. The patient reports that he has had stomach and lower back pain. He does report that he has chronic lower back pain that he takes prednisone intermittently for. The patient does report that on he had an episode of left-sided chest pain, but associated that with his constipation. He reports he has had no further episodes of chest pain since . He does report that he has had some shortness of breath, but denies any nocturnal dyspnea or orthopnea. The patient does report that he has lower extremity leg swelling, but does report that this is at his baseline and not significantly worse than normal. The patient denies any fevers. He does report a cough a few days ago, but no further episodes. Denies any hemoptysis. He does complain of shortness of breath, worse with exertion. He does report dizziness, worse with standing and walking. He denies any nausea, vomiting, or diarrhea. He does report lower abdominal pain which has subsided and associated with constipation. He denies any urinary frequency or pain with urination. Denies any sensory loss. Denies any visual complaints, dysphagia, arthralgias, myalgias, rashes, lesions, open sores. While in the emergency room, the patient had routine lab work drawn. He was found to have a troponin of 0.08. Due to the patient's reported chest pain on and shortness of breath, Hospital Medicine was asked to see and evaluate him for admission. PAST MEDICAL HISTORY: Significant for coronary artery disease, reduced ejection fraction of 20% to 25%, history of congestive heart failure, history of hyperthyroid, diverticulitis, diabetes, and glaucoma. PAST SURGICAL HISTORY: 1. Ablation. 2. History of kidney stones, removed. 3. Cataract surgery. HOME MEDICATIONS: Include: 1. Lantus 35 units subcu b.i.d. 2. Alphagan 1 drop to both eyes b.i.d. 3. Latanoprost 1 drop to both eyes at bedtime. 4. Requip 0.5 mg p.o. daily. 5. Atorvastatin 80 mg p.o. daily. 6. Hytrin 5 mg at bedtime. 7. Finasteride 5 mg p.o. at bedtime. 8. Tramadol 50 mg p.o. q.p.m. p.r.n. 9. Methimazole 1.25 mg p.o. q.a.m. 10. Prednisone 10 mg in the morning, 10 mg at night as needed for back pain. 11. Aspirin 81 mg p.o. daily. 12. Allopurinol 100 mg p.o. daily. 13. Omeprazole 20 mg p.o. daily. 14. Digoxin 0.125 mg p.o. daily. 15. Carvedilol 50 mg at night, 25 in the morning. 16. NovoLog sliding scale with meals. ALLERGIES: LYRICA and GABAPENTIN. FAMILY HISTORY: Mother with a history of stroke after an ablation. Father with congestive heart failure. No reported history of diabetes or cancer in the family. SOCIAL HISTORY: The patient reports he quit smoking 20 years ago. He reports occasional alcohol use. No illicit drug use. He is . He lives with his . Surrogate decision maker in the event he is unable to make his own decisions is his . He is a full code. REVIEW OF SYSTEMS: A 14-point review of systems was completed. All pertinent positives were mentioned in the HPI. Otherwise were negative. PHYSICAL EXAMINATION GENERAL: At this time, Mr. Hanson is alert and oriented, resting on the stretcher in the emergency room. He is in no acute distress. HEENT: Head is atraumatic, normocephalic. Cheeks are flushed. Mucous membranes are moist. NECK: Supple. Mild JVD is noted. LUNGS: Upper breath sounds are clear. He does have expiratory wheezes noted on the left with crackles in the bases bilaterally, left worse than right. CARDIAC: S1, S2. Regular rate and rhythm. No rubs or gallops. ABDOMEN: Soft and nontender. Bowel sounds are present x4. EXTREMITIES: He is able to move all 4 extremities. There is no clubbing or cyanosis. He does have +2 pitting edema to bilateral lower extremities. NEUROLOGIC: He is awake, alert, oriented x3. Speech is clear. Thought process is intact. SKIN: Intact. DIAGNOSTIC STUDIES/LAB DATA: WBCs are 8.9, RBCs 4.23, hemoglobin 13.0, hematocrit is 38, platelet count 222. Sodium 133, potassium 4.5, chloride 97, carbon dioxide was 26, anion gap was 10, BUN was 37, glucose was 152, lactic acid was 1.5, calcium 9.2, magnesium 1.8. Total bilirubin 1.80, AST 24, ALT was 44, alkaline phosphatase 128. Troponin initially was 0.08, repeat was 0.07. C-reactive protein was 158. BNP was 953. TSH was 0.49. Urine was within normal limits with exceptions ketones were 1+, blood was 1+, rbc's were 2 +, and squamous epithelial cells were present. Digoxin level is currently pending. Chest x-ray, radiologist's impression: Constellation of findings consistent with alveolar pulmonary edema, correlate with clinical assessment as simultaneous bronchopneumonia is not excluded. He had an abdominal x-ray negative for bowel obstruction. He had an electrocardiogram, which showed sinus tachycardia at a rate of 110 with PVC. He has a right bundle-branch block. ASSESSMENT AND PLAN: Mr. Hanson is an 84-year-old male with a past medical history significant for diabetes, history of congestive heart failure with an EF of 20% to 25%, hypertension, neuropathy, gout, history of atrial flutter, and hyperthyroidism, who presented to the emergency room with complaints of abdominal pain, general fatigue, shortness of breath, episode of left-sided chest pain on . He will be admitted under observation for: 1. Weakness and fatigue. The patient does complain of weakness and fatigue since and decreased appetite. The patient does have a chest x-ray that could be consistent with bronchial pneumonia as well as pulmonary edema. I suspect this could be contributing to his weakness. The patient also has a known ejection fraction of 20% to 25% from ECHO 11/16/2019, Echo also showed severe hypokinesis and grade 2 diastolic dysfunction. again this could also be contributing to his weakness. 2. Shortness of breath. The patient does have shortness of breath, worse with exertion. He denies any nocturnal dyspnea or orthopnea. I suspect that his underlying shortness of breath is a combination of possible mild congestive heart failure with possible underlying pneumonia. I am going to give him a small dose of Lasix 20 mg IV. I am going to start him on doxycycline and ceftriaxone to cover for bronchial pneumonia. I will get blood cultures and send a urine for Streptococcus pneumoniae and legionella. As the patient does report generalized fatigue, weakness, I am also going to check him for influenza as a source of his generalized weakness and fatigue. We will place him on daily weights and strict I and O's. 3. History of congestive heart failure with low ejection fraction, known ejection fraction of 20% to 25%. We will continue him on his home medications of Coreg, digoxin. I am going to give him a small dose of Lasix [address] will place him on strict I and O's and daily weights. 4. Abdominal pain, resolved. The patient did have constipation on . He had a bowel movement after taking MiraLAX at home and currently has no abdominal pain at this time. He did have an x-ray of the abdomen that showed no bowel obstruction and normal gas pattern. 5. Dizziness. The patient has had some dizziness, worse with standing and ambulating. I suspect this could be a combination of his low ejection fraction of 20% to 25% as well as decrease in p.o. intake. We will continue to monitor him. I will get orthostatic vital signs. 6. Hyperthyroid. He should continue on Tapazole as previously prescribed. 7. Diabetes type 2. The patient lispro sliding scale with meals and HS, I will hold his Lantus as his blood sugar is currently 128. He will have fingersticks a.c. and h.s. and a consistent carb diet. 8. Elevated troponin. The patient does have an elevated troponin. Initially, it was 0.08, repeat was 0.07. I suspect this is related to demand ischemia from likely underlying congestive heart failure and possible bronchopneumonia. 9. FEN: He can have a consistent carb diet. 10. Code status: He is a full code. 11. DVT prophylaxis: I will place him on Lovenox subcu. TIME SPENT: Time spent on this admission was 60 minutes, greater than half that time was spent at the bedside reviewing events leading thus far to his hospitalization, performing physical exam, and reviewing my plan of care. I have discussed this with my attending Dr. Yary Kaur; she is in agreement with my plan. KRYSTLE RAMON, ZOË [id number]/[facility] #: [id number] JED
[2020-01-09 20:37] LABS: Troponin I 0.07 ng/mL (<0.03)
[2020-01-09] MEDS ORDERED: Terazosin CAP* 5 MG PO SCH (21:00)
[2020-01-09] MEDS: DOXYcycline CAP(*) 100 MG PO SCH (21:31)
[2020-01-09] MEDS: Latanoprost 0.005%* 2.5 ml BTL BOTH EYES SCH (21:31)
[2020-01-09] MEDS: Brimonidine P 0.1%(NF) 1 DROP BTL BOTH EYES SCH (21:31)
[2020-01-09] MEDS: Insulin LISPRO* 1 UNITS UNIT SUBCUT SCH (21:31)
[2020-01-09] MEDS ORDERED: NS 0.9% 250 ML* 250 ML IV ONE (22:49)
[2020-01-10 02:02] LABS: BUN/Creatinine Ratio 34.7 (8-20); Calcium 8.6 mg/dL (8.6-10.3); EGFR African American 85.4 (>60); EGFR Non-African American 70.5 (>60); Magnesium 1.7 mg/dL (1.9-2.7); Potassium 3.6 mmol/L (3.5-5.0)
[2020-01-10] MEDS: Insulin LISPRO* 1 UNITS UNIT SUBCUT SCH ×4 (08:33→21:27)
[2020-01-10] MEDS ORDERED: Carvedilol TAB* 25 MG PO SCH (09:00)
--- NOTE | 2020-01-10 09:32 | PN ---
Subjective Date of Service: 01/10/20 Interval History: HOSPITALIST PROGRESS NOTE Patient seen and examined at bedside. Care reviewed and d/w Krystle Sapp RN. He feels "wiped out" today. States he has no energy to do anything. Dyspnea is unchanged, denies cough. Family History: Unchanged from Admission Social History: Unchanged from Admission Past Medical History: Unchanged from Admission Objective Active Medications: Acetaminophen (Tylenol Tab*) 650 mg PO Q6H PRN PRN Reason: MILD PAIN or TEMP > 100.4 Allopurinol (Zyloprim Tab*) 100 mg PO DAILY [facility] Aspirin (Aspirin Ec Tab*) 81 mg PO DAILY [facility] Atorvastatin Calcium (Lipitor*) 80 mg PO DAILY [facility] Brimonidine Tartrate (Alphagan P 0.1% (Nf)) 1 drop BOTH EYES BID [facility] Last Admin: 01/09/20 21:31 Dose: Not Given Carvedilol (Coreg Tab*) 12.5 mg PO BID [facility] Dextrose (D50w Syringe 50 Ml*) 12.5 gm IV PUSH .FOR FS < 60 - SS PRN PRN Reason: FS < 60 Digoxin (Lanoxin Tab*) 0.125 mg PO QAM [facility] Doxycycline Hyclate (Vibramycin Cap(*)) 100 mg PO BID [facility] Last Admin: 01/09/20 21:31 Dose: 100 mg Enoxaparin Sodium (Lovenox(*)) 40 mg SUBCUT Q24H [facility] Last Admin: 01/09/20 17:01 Dose: 40 mg Finasteride (Proscar Tab*) 5 mg PO QPM [facility] Last Admin: 01/09/20 18:02 Dose: 5 mg Ceftriaxone Sodium 1 gm/ (Sodium Chloride) 50 mls @ 100 mls/hr IVPB Q24H [facility] Last Admin: 01/09/20 18:04 Dose: 100 mls/hr Insulin Human Lispro (Humalog*) 0 units SUBCUT ACHS [facility]; Protocol Last Admin: 01/10/20 08:33 Dose: Not Given Latanoprost (Xalatan 0.005%*) 1 drop BOTH EYES BEDTIME [facility] Last Admin: 01/09/20 21:31 Dose: 1 drop Methimazole (Tapazole Tab*) 1.25 mg PO QAM [facility] Pantoprazole Sodium (Protonix Tab*) 40 mg PO DAILY [facility] Ropinirole HCl (Requip Tab*) 0.25 mg PO DAILY [facility] Terazosin HCl (Hytrin Cap*) 5 mg PO BEDTIME [facility] Vital Signs - 8 hr 01/10/20 01/10/20 03:15 07:54 Temperature 97.4 F 98.1 F Pulse Rate 89 101 Respiratory 16 20 Rate Blood Pressure 108/42 91/49 (mmHg) O2 Sat by Pulse 96 100 Oximetry Oxygen Devices in Use Now: Nasal Cannula - 3 liters Appearance: Pleasant elderly gentleman lying in bed in NAD Eyes: No Scleral Icterus Ears/Nose/Mouth/Throat: Mucous Membranes Moist Neck: Trachea Midline Respiratory: Symmetrical Chest Expansion and Respiratory Effort, - - BS+ bilaterally with bibasilar crackles Cardiovascular: RRR - Normal S1 and S2 Abdominal: NL Sounds; No Tenderness; No Distention Extremities: No Edema Neurological: Alert and Oriented x 3, NL Muscle Strength and Tone Result Diagrams: 01/10/20 11:17 01/10/20 11:17 Microbiology and Other Data: Microbiology 01/09/20 14:20 Legionella Urinary Antigen - Final Urine Negative Legionella Antigen Streptococcus pneumoniae Ag Screen - Final Negative S. pneumo Antigen Assess/Plan/Problems-Billing Assessment: Mr Hanson is an 84yo M with a PMH of type 2 DM, diabetic neuropathy, HFrEF 25% , atrial flutter (not on anticoagulation due to hematuria on Xarelto), HTN, hyperthyroidism, bladder stones, perforated diverticulitis with intrabdominal abscess 11/2018; who presented to ED with c/o severe weakness and fatigue, found to have probable pneumonia. - Patient Problems (1) Pneumonia Comment: - Suspect the majority of his symptoms is secondary to pneumonia. - CT chest shows multifocal bilateral airspace disease suggestive of bronchopneumonia. - Legionella, pneumococcal, Influenza are negative. - Blood cultures show no growth to date. - Continue Ceftriaxone and doxycycline. (2) Hypotension Comment: - Secondary to diuretic use yesterday. Improved with IVF, but need to be careful to avoid fluid overload. - Holding parameters for Terazosin and decrease Caverdilol dose with holding parameters as well. - This appears to be a chronic issue as per last Cardiology progress note - Lisinopril was discontinued in November due to hypotension. (3) Troponin level elevated Comment: - Suspect demand ischemia in the setting of infection and a flutter with RVR. (4) Atrial flutter Comment: - Not on anticoagulation due to hematuria with Xarelto. - Continue digoxin; Caverdilol dose decreased due to hypotension - continue to monitor. (5) Heart failure with reduced ejection fraction Comment: - Hold off on diuresis for now - monitor for signs of fluid overload. (6) Type 2 diabetes mellitus Comment: - Check A1c. - Glucose well controlled without Lanuts for now as PO intake is poor. Continue Lispro sliding scale. (7) Hyperthyroidism Comment: - Continue methimazole. - TSH 0.49. (8) DVT prophylaxis Comment: - Lovenox. (9) Full code status Status and Disposition: Change to inpatient.
[2020-01-10] MEDS: Atorvastatin* 80 MG TAB PO SCH (11:01)
[2020-01-10] MEDS: Carvedilol TAB* 6.25 MG PO SCH ×2 (11:01→21:41)
[2020-01-10] MEDS: Digoxin TAB* 0.125 MG PO SCH (11:02)
[2020-01-10] MEDS: DOXYcycline CAP(*) 100 MG PO SCH ×2 (11:02→21:41)
[2020-01-10] MEDS: Aspirin EC TAB* 81 MG TAB.EC PO SCH (11:02)
[2020-01-10] MEDS: Allopurinol TAB* 100 MG PO SCH (11:03)
[2020-01-10] MEDS: Pantoprazole TAB * 40 MG TAB PO SCH (11:03)
[2020-01-10] MEDS: Ropinirole TAB* 0.5 MG TAB PO SCH (11:03)
[2020-01-10] MEDS: Methimazole TAB* 5 MG PO SCH (11:05)
[2020-01-10] MEDS: Brimonidine P 0.1%(NF) 1 DROP BTL BOTH EYES SCH ×2 (11:06→21:21)
[2020-01-10 11:42] LABS: ABS Lymphocytes 1.1 10^3/ul (1.0-4.8); ABS Monocytes 0.7 10^3/ul (0-0.8); ABS Neutrophils 5.6 10^3/ul (1.5-7.7); Eosinophil % 0.1 %; Hematocrit 37 % (42-52); Hemoglobin 12.5 g/dL (14.0-18.0); Lymphocyte % 14.5 %; Mean Corpuscular HGB Conc 34 g/dL (31-36); Mean Corpuscular Hemoglobin 30 pg (27-31); Mean Corpuscular Volume 90 fL (80-94); Mean Platelet Volume 7.9 fL (7.4-10.4); Nucleated Red Blood Cells % 0.1; Platelet Count 228 10^3/uL (150-450); Red Blood Count 4.13 10^6 /uL (4.18-5.48); Red Cell Distribution Width 16 % (10-15); White Blood Count 7.4 10^3/uL (3.5-10.8)
[2020-01-10 11:57] LABS: BUN/Creatinine Ratio 34.8 (8-20); Calcium 8.9 mg/dL (8.6-10.3); EGFR African American 95.1 (>60); EGFR Non-African American 78.6 (>60); Magnesium 1.8 mg/dL (1.9-2.7); Potassium 3.7 mmol/L (3.5-5.0)
[2020-01-10] MEDS ORDERED: Magnesium Sulfate 2 GM IV* 2 GM/50 ML BAG IVPB ONE (14:19)
[2020-01-10] MEDS: Potassium Chlor TAB* 20 MEQ TAB.ER PO SCH ×2 (14:46→21:42)
[2020-01-10] MEDS: Enoxaparin(*) 40 MG/0.4 ML SYR SUBCUT SCH (14:51)
[2020-01-10] MEDS: cefTRIAXone(*) 1 GM in NS 0.9% 50 ML* 50 ML IVPB SCH (16:55)
[2020-01-10] MEDS: Finasteride TAB* 5 MG PO SCH (16:57)
[2020-01-10] MEDS: Terazosin CAP* 5 MG PO SCH (21:42)
[2020-01-10] MEDS: Latanoprost 0.005%* 2.5 ml BTL BOTH EYES SCH (21:43)
[2020-01-11 05:34] LABS: ABS Basophils 0.1 10^3/ul (0-0.2); ABS Lymphocytes 1.5 10^3/ul (1.0-4.8); ABS Monocytes 0.7 10^3/ul (0-0.8); ABS Neutrophils 5.3 10^3/ul (1.5-7.7); Eosinophil % 0.3 %; Hematocrit 35 % (42-52); Hemoglobin 11.7 g/dL (14.0-18.0); Lymphocyte % 19.3 %; Mean Corpuscular HGB Conc 34 g/dL (31-36); Mean Corpuscular Hemoglobin 31 pg (27-31); Mean Corpuscular Volume 90 fL (80-94); Mean Platelet Volume 7.8 fL (7.4-10.4); Nucleated Red Blood Cells % 0.1; Platelet Count 215 10^3/uL (150-450); Red Blood Count 3.83 10^6 /uL (4.18-5.48); Red Cell Distribution Width 16 % (10-15); White Blood Count 7.5 10^3/uL (3.5-10.8)
[2020-01-11 05:52] LABS: BUN/Creatinine Ratio 27.4 (8-20); Calcium 8.5 mg/dL (8.6-10.3); EGFR African American 105.6 (>60); EGFR Non-African American 87.3 (>60); Magnesium 1.8 mg/dL (1.9-2.7); Potassium 4.5 mmol/L (3.5-5.0)
[2020-01-11] MEDS: Insulin LISPRO* 1 UNITS UNIT SUBCUT SCH ×4 (07:46→21:12)
[2020-01-11] MEDS: Brimonidine P 0.1%(NF) 1 DROP BTL BOTH EYES SCH ×2 (08:16→21:16)
[2020-01-11] MEDS: Methimazole TAB* 5 MG PO SCH (08:23)
[2020-01-11] MEDS: DOXYcycline CAP(*) 100 MG PO SCH ×2 (08:24→21:12)
[2020-01-11] MEDS: Digoxin TAB* 0.125 MG PO SCH (08:24)
[2020-01-11] MEDS: Allopurinol TAB* 100 MG PO SCH (08:25)
[2020-01-11] MEDS: Potassium Chlor TAB* 20 MEQ TAB.ER PO SCH (08:25)
[2020-01-11] MEDS: Aspirin EC TAB* 81 MG TAB.EC PO SCH (08:25)
[2020-01-11] MEDS: Ropinirole TAB* 0.5 MG TAB PO SCH (08:25)
[2020-01-11] MEDS: Atorvastatin* 80 MG TAB PO SCH (08:25)
[2020-01-11] MEDS: Pantoprazole TAB * 40 MG TAB PO SCH (08:25)
[2020-01-11] MEDS: Carvedilol TAB* 6.25 MG PO SCH ×2 (08:25→21:12)
[2020-01-11] MEDS ORDERED: Magnesium Sulfate 2 GM IV* 2 GM/50 ML BAG IVPB ONE (08:51)
[2020-01-11] MEDS: Enoxaparin(*) 40 MG/0.4 ML SYR SUBCUT SCH (13:48)
--- NOTE | 2020-01-11 14:18 | PN ---
Subjective Date of Service: 01/11/20 Interval History: HOSPITALIST PROGRESS NOTE Patient seen and examined at bedside. Care reviewed and d/w Ovi Ramirez RN. He feels a little better today. Breathing is improving, but he still feels very weak and fatigued. Family History: Unchanged from Admission Social History: Unchanged from Admission Past Medical History: Unchanged from Admission Objective Active Medications: Acetaminophen (Tylenol Tab*) 650 mg PO Q6H PRN PRN Reason: MILD PAIN or TEMP > 100.4 Allopurinol (Zyloprim Tab*) 100 mg PO DAILY [facility] Last Admin: 01/11/20 08:25 Dose: 100 mg Aspirin (Aspirin Ec Tab*) 81 mg PO DAILY [facility] Last Admin: 01/11/20 08:25 Dose: 81 mg Atorvastatin Calcium (Lipitor*) 80 mg PO DAILY [facility] Last Admin: 01/11/20 08:25 Dose: 80 mg Brimonidine Tartrate (Alphagan P 0.1% (Nf)) 1 drop BOTH EYES BID [facility] Last Admin: 01/11/20 08:16 Dose: Not Given Carvedilol (Coreg Tab*) 12.5 mg PO BID [facility] Last Admin: 01/11/20 08:25 Dose: 12.5 mg Dextrose (D50w Syringe 50 Ml*) 12.5 gm IV PUSH .FOR FS < 60 - SS PRN PRN Reason: FS < 60 Digoxin (Lanoxin Tab*) 0.125 mg PO QAM [facility] Last Admin: 01/11/20 08:24 Dose: 0.125 mg Doxycycline Hyclate (Vibramycin Cap(*)) 100 mg PO BID [facility] Last Admin: 01/11/20 08:24 Dose: 100 mg Enoxaparin Sodium (Lovenox(*)) 40 mg SUBCUT Q24H [facility] Last Admin: 01/11/20 13:48 Dose: 40 mg Finasteride (Proscar Tab*) 5 mg PO QPM [facility] Last Admin: 01/10/20 16:57 Dose: 5 mg Ceftriaxone Sodium 1 gm/ (Sodium Chloride) 50 mls @ 100 mls/hr IVPB Q24H [facility] Last Admin: 01/10/20 16:55 Dose: 100 mls/hr Insulin Human Lispro (Humalog*) 0 units SUBCUT ACHS [facility]; Protocol Last Admin: 01/11/20 11:42 Dose: 2 units Latanoprost (Xalatan 0.005%*) 1 drop BOTH EYES BEDTIME [facility] Last Admin: 01/10/20 21:43 Dose: 1 drop Methimazole (Tapazole Tab*) 1.25 mg PO QAM [facility] Last Admin: 01/11/20 08:23 Dose: 1.25 mg Pantoprazole Sodium (Protonix Tab*) 40 mg PO DAILY [facility] Last Admin: 01/11/20 08:25 Dose: 40 mg Prednisone (Deltasone 10 Mg Tab) 10 mg PO BID [facility] Last Admin: 01/11/20 10:58 Dose: 10 mg Ropinirole HCl (Requip Tab*) 0.25 mg PO DAILY [facility] Last Admin: 01/11/20 08:25 Dose: 0.25 mg Sodium Chloride (Sodium Chloride 0.65% Nasal Basye*) 1 spray .SEE ORDER BEDTIME [facility]; Protocol Terazosin HCl (Hytrin Cap*) 5 mg PO BEDTIME [facility] Last Admin: 01/10/20 21:42 Dose: 5 mg Vital Signs - 8 hr 01/11/20 01/11/20 01/11/20 07:15 08:00 11:15 Temperature 98 F 98 F Pulse Rate 90 81 Respiratory 16 16 20 Rate Blood Pressure 91/56 106/55 (mmHg) O2 Sat by Pulse 97 99 Oximetry 01/11/20 13:55 Temperature Pulse Rate Respiratory Rate Blood Pressure (mmHg) O2 Sat by Pulse 97 Oximetry Oxygen Devices in Use Now: Nasal Cannula - 2 liters Appearance: Elderly gentleman sitting up in bed in NAD Eyes: No Scleral Icterus Ears/Nose/Mouth/Throat: Mucous Membranes Moist Neck: Trachea Midline Respiratory: Symmetrical Chest Expansion and Respiratory Effort, - - BS+ bilaterally with bilateral crackles L>R Cardiovascular: RRR - Normal S1 and S2 Abdominal: NL Sounds; No Tenderness; No Distention Extremities: - - Mild bilateral LE edema Skin: - - Multiple bruises in different stages of healing on both upper and lower extremities Neurological: Alert and Oriented x 3, NL Muscle Strength and Tone Result Diagrams: 01/11/20 05:21 01/11/20 05:21 Microbiology and Other Data: Microbiology 01/09/20 14:20 Legionella Urinary Antigen - Final Urine Negative Legionella Antigen Streptococcus pneumoniae Ag Screen - Final Negative S. pneumo Antigen Assess/Plan/Problems-Billing Assessment: Mr Hanson is an 84yo M with a PMH of type 2 DM, diabetic neuropathy, HFrEF 25% , atrial flutter (not on anticoagulation due to hematuria on Xarelto), HTN, hyperthyroidism, bladder stones, perforated diverticulitis with intrabdominal abscess 11/2018; who presented to ED with c/o severe weakness and fatigue, found to have probable pneumonia. - Patient Problems (1) Pneumonia Comment: - CT chest shows multifocal bilateral airspace disease suggestive of bronchopneumonia. - Legionella, pneumococcal, Influenza are negative. - Blood cultures show no growth to date. - Continue Ceftriaxone and doxycycline. (2) Hypotension Comment: - Secondary to diuretic use yesterday. Improved with IVF, but need to be careful to avoid fluid overload. - Holding parameters for Terazosin and decrease Caverdilol dose with holding parameters as well. - This appears to be a chronic issue as per last Cardiology progress note - Lisinopril was discontinued in November due to hypotension. (3) Adrenal insufficiency Comment: - Suspect some of his fatigue is also due to secondary adrenal insufficiency. He tells me 5 years ago he was diagnosed with "herniated discs" and was told he was too high risk for surgery. He was then prescribed prednisone to be used "sparingly", but states this has become a routine medication for him, that he takes twice a day. - Suspect he probably needs stress dose now in the setting of pneumonia. (4) Troponin level elevated Comment: - Suspect demand ischemia in the setting of infection and a flutter with RVR. (5) Atrial flutter Comment: - Not on anticoagulation due to hematuria with Xarelto. - Continue digoxin; Caverdilol dose decreased due to hypotension - continue to monitor. (6) Heart failure with reduced ejection fraction Comment: - Hold off on diuresis for now - monitor for signs of fluid overload. (7) Type 2 diabetes mellitus Comment: - A1c 7.6. - Glucose well controlled without Lanuts for now as PO intake is poor. Continue Lispro sliding scale. (8) Hyperthyroidism Comment: - Continue methimazole. - TSH 0.49. (9) DVT prophylaxis Comment: - Lovenox. (10) Full code status Status and Disposition: Inpatient.
[2020-01-11] MEDS: cefTRIAXone(*) 1 GM in NS 0.9% 50 ML* 50 ML IVPB SCH (16:21)
[2020-01-11] MEDS: Finasteride TAB* 5 MG PO SCH (16:43)
[2020-01-11] MEDS ORDERED: cefTRIAXone VIAL(*) 1,000 MG VIAL IM ONE (16:55)
[2020-01-11] MEDS: Terazosin CAP* 5 MG PO SCH (21:12)
[2020-01-11] MEDS: Latanoprost 0.005%* 2.5 ml BTL BOTH EYES SCH (21:13)
[2020-01-11] MEDS: SALINE 0.65% SCH (21:15)
[2020-01-12] MEDS: Aspirin EC TAB* 81 MG TAB.EC PO SCH (09:21)
[2020-01-12] MEDS: Atorvastatin* 80 MG TAB PO SCH (09:21)
[2020-01-12] MEDS: Insulin LISPRO* 1 UNITS UNIT SUBCUT SCH ×4 (09:21→21:24)
[2020-01-12] MEDS: Pantoprazole TAB * 40 MG TAB PO SCH (09:21)
[2020-01-12] MEDS: Carvedilol TAB* 6.25 MG PO SCH (09:21)
[2020-01-12] MEDS: Digoxin TAB* 0.125 MG PO SCH (09:22)
[2020-01-12] MEDS: Ropinirole TAB* 0.5 MG TAB PO SCH (09:22)
[2020-01-12] MEDS: Allopurinol TAB* 100 MG PO SCH (09:22)
[2020-01-12] MEDS: DOXYcycline CAP(*) 100 MG PO SCH ×2 (09:22→20:55)
[2020-01-12] MEDS: Methimazole TAB* 5 MG PO SCH (09:24)
[2020-01-12] MEDS: Brimonidine P 0.1%(NF) 1 DROP BTL BOTH EYES SCH ×2 (09:25→20:55)
--- NOTE | 2020-01-12 11:26 | PN ---
Subjective Date of Service: 01/12/20 Interval History: HOSPITALIST PROGRESS NOTE Patient seen and examined at bedside. Care reviewed and d/w Ovi Ramirez RN. The extra dose of prednisone seems to have really helped. His energy level is improving, although not back to his baseline. Dyspnea is also less intense and he does not require supplemental O2 anymore. Multiple beats of Vtach, asymptomatic. Family History: Unchanged from Admission Social History: Unchanged from Admission Past Medical History: Unchanged from Admission Objective Active Medications: Acetaminophen (Tylenol Tab*) 650 mg PO Q6H PRN PRN Reason: MILD PAIN or TEMP > 100.4 Allopurinol (Zyloprim Tab*) 100 mg PO DAILY [facility] Last Admin: 01/12/20 09:22 Dose: 100 mg Aspirin (Aspirin Ec Tab*) 81 mg PO DAILY [facility] Last Admin: 01/12/20 09:21 Dose: 81 mg Atorvastatin Calcium (Lipitor*) 80 mg PO DAILY [facility] Last Admin: 01/12/20 09:21 Dose: 80 mg Brimonidine Tartrate (Alphagan P 0.1% (Nf)) 1 drop BOTH EYES BID [facility] Carvedilol (Coreg Tab*) 25 mg PO BID [facility] Dextrose (D50w Syringe 50 Ml*) 12.5 gm IV PUSH .FOR FS < 60 - SS PRN PRN Reason: FS < 60 Digoxin (Lanoxin Tab*) 0.125 mg PO QAM [facility] Last Admin: 01/12/20 09:22 Dose: 0.125 mg Doxycycline Hyclate (Vibramycin Cap(*)) 100 mg PO BID [facility] Last Admin: 01/12/20 09:22 Dose: 100 mg Enoxaparin Sodium (Lovenox(*)) 40 mg SUBCUT Q24H [facility] Last Admin: 01/11/20 13:48 Dose: 40 mg Finasteride (Proscar Tab*) 5 mg PO QPM [facility] Last Admin: 01/11/20 16:43 Dose: 5 mg Insulin Human Lispro (Humalog*) 0 units SUBCUT ACHS [facility]; Protocol Last Admin: 01/12/20 09:21 Dose: 2 units Latanoprost (Xalatan 0.005%*) 1 drop BOTH EYES BEDTIME [facility] Last Admin: 01/11/20 21:13 Dose: 1 drop Methimazole (Tapazole Tab*) 1.25 mg PO QAM [facility] Last Admin: 01/12/20 09:24 Dose: 1.25 mg Pantoprazole Sodium (Protonix Tab*) 40 mg PO DAILY [facility] Last Admin: 01/12/20 09:21 Dose: 40 mg Prednisone (Deltasone 10 Mg Tab) 15 mg PO DAILY [facility] Last Admin: 01/12/20 09:23 Dose: 15 mg Prednisone (Deltasone 10 Mg Tab) 10 mg PO QPM [facility] Last Admin: 01/11/20 16:43 Dose: 10 mg Ropinirole HCl (Requip Tab*) 0.25 mg PO DAILY [facility] Last Admin: 01/12/20 09:22 Dose: 0.25 mg Sodium Chloride (Sodium Chloride 0.65% Nasal [place]*) 1 spray .SEE ORDER BEDTIME [facility]; Protocol Last Admin: 01/11/20 21:15 Dose: 1 spray Terazosin HCl (Hytrin Cap*) 5 mg PO BEDTIME [facility] Last Admin: 01/11/20 21:12 Dose: 5 mg Vital Signs - 8 hr 01/12/20 01/12/20 01/12/20 03:49 07:15 08:00 Temperature 97.6 F 97.7 F Pulse Rate 109 88 Respiratory 18 16 16 Rate Blood Pressure 107/40 107/46 (mmHg) O2 Sat by Pulse 95 95 Oximetry Oxygen Devices in Use Now: None Appearance: Pleasant elderly gentleman sitting up in bed in NAD Eyes: No Scleral Icterus Ears/Nose/Mouth/Throat: Mucous Membranes Moist Neck: Trachea Midline Respiratory: Symmetrical Chest Expansion and Respiratory Effort, Clear to Auscultation Cardiovascular: RRR - Normal S1 and S2 Extremities: - - Mild LE edema Neurological: Alert and Oriented x 3, NL Muscle Strength and Tone Result Diagrams: 01/11/20 05:21 01/11/20 05:21 Microbiology and Other Data: Microbiology 01/09/20 14:20 Legionella Urinary Antigen - Final Urine Negative Legionella Antigen Streptococcus pneumoniae Ag Screen - Final Negative S. pneumo Antigen Assess/Plan/Problems-Billing Assessment: Mr Hanson is an 84yo M with a PMH of type 2 DM, diabetic neuropathy, HFrEF 25% , atrial flutter (not on anticoagulation due to hematuria on Xarelto), HTN, hyperthyroidism, bladder stones, perforated diverticulitis with intrabdominal abscess 11/2018; who presented to ED with c/o severe weakness and fatigue, found to have probable pneumonia. - Patient Problems (1) Pneumonia Comment: - CT chest shows multifocal bilateral airspace disease suggestive of bronchopneumonia. - Legionella, pneumococcal, Influenza are negative. - Blood cultures show no growth to date. - Continue Ceftriaxone and doxycycline. (2) Hypotension Comment: - Improving. - Holding parameters for Terazosin. - Inecrease Caverdilol dose with holding parameters as well. - This appears to be a chronic issue as per last Cardiology progress note - Lisinopril was discontinued in November due to hypotension. (3) Adrenal insufficiency Comment: - Suspect some of his fatigue is also due to secondary adrenal insufficiency. He tells me 5 years ago he was diagnosed with "herniated discs" and was told he was too high risk for surgery. He was then prescribed prednisone to be used "sparingly", but states this has become a routine medication for him, that he takes twice a day. - Suspect he probably needs stress dose now in the setting of pneumonia. (4) Troponin level elevated Comment: - Suspect demand ischemia in the setting of infection and a flutter with RVR. (5) Atrial flutter Comment: - Not on anticoagulation due to hematuria with Xarelto. - Continue digoxin; Caverdilol dose decreased due to hypotension - continue to monitor. (6) Heart failure with reduced ejection fraction Comment: - Hold off on diuresis for now - no signs of fluid overload. (7) Type 2 diabetes mellitus Comment: - A1c 7.6. - Glucose well controlled without Lanuts for now as PO intake is poor. Continue Lispro sliding scale. (8) Hyperthyroidism Comment: - Continue methimazole. - TSH 0.49. (9) DVT prophylaxis Comment: - Lovenox. (10) Full code status Status and Disposition: Inpatient. Difficult IV access - will place midline.
[2020-01-12] MEDS: cefTRIAXone(*) 1 GM in NS 0.9% 50 ML* 50 ML IVPB SCH (15:55)
[2020-01-12] MEDS: Enoxaparin(*) 40 MG/0.4 ML SYR SUBCUT SCH (15:55)
[2020-01-12] MEDS: Finasteride TAB* 5 MG PO SCH (17:15)
[2020-01-12] MEDS: Latanoprost 0.005%* 2.5 ml BTL BOTH EYES SCH (20:55)
[2020-01-12] MEDS: Carvedilol TAB* 25 MG PO SCH (20:55)
[2020-01-12] MEDS: Terazosin CAP* 5 MG PO SCH (20:55)
[2020-01-12] MEDS: SALINE 0.65% SCH (20:56)
[2020-01-13] MEDS ORDERED: Digoxin TAB* 0.125 MG PO ONE (03:10)
[2020-01-13 05:55] LABS: BUN/Creatinine Ratio 21.5 (8-20); Calcium 8.9 mg/dL (8.6-10.3); EGFR African American 93.9 (>60); EGFR Non-African American 77.6 (>60); Magnesium 1.9 mg/dL (1.9-2.7); Potassium 4.2 mmol/L (3.5-5.0)
[2020-01-13] MEDS: Atorvastatin* 80 MG TAB PO SCH (08:00)
[2020-01-13] MEDS: Ropinirole TAB* 0.5 MG TAB PO SCH (08:01)
[2020-01-13] MEDS: Digoxin TAB* 0.125 MG PO SCH (08:01)
[2020-01-13] MEDS: Allopurinol TAB* 100 MG PO SCH (08:01)
[2020-01-13] MEDS: Pantoprazole TAB * 40 MG TAB PO SCH (08:01)
[2020-01-13] MEDS: Aspirin EC TAB* 81 MG TAB.EC PO SCH (08:01)
[2020-01-13] MEDS: Carvedilol TAB* 25 MG PO SCH ×2 (08:02→17:22)
[2020-01-13] MEDS: DOXYcycline CAP(*) 100 MG PO SCH ×2 (08:02→21:00)
[2020-01-13] MEDS: Methimazole TAB* 5 MG PO SCH (08:03)
[2020-01-13] MEDS: Brimonidine P 0.1%(NF) 1 DROP BTL BOTH EYES SCH ×2 (08:04→21:01)
[2020-01-13] MEDS: Insulin LISPRO* 1 UNITS UNIT SUBCUT SCH ×4 (08:53→21:00)
--- NOTE | 2020-01-13 11:00 | PN ---
Subjective Date of Service: 01/13/20 Interval History: HOSPITALIST PROGRESS NOTE Patient seen and examined at bedside. Care reviewed and d/w Carmen Gerard RN. He feels well this AM. Breathing and energy level are improved. Continues to be in and out of Afib, but HR was up to 150 last night. Family History: Unchanged from Admission Social History: Unchanged from Admission Past Medical History: Unchanged from Admission Objective Active Medications: Acetaminophen (Tylenol Tab*) 650 mg PO Q6H PRN PRN Reason: MILD PAIN or TEMP > 100.4 Allopurinol (Zyloprim Tab*) 100 mg PO DAILY [facility] Last Admin: 01/13/20 08:01 Dose: 100 mg Aspirin (Aspirin Ec Tab*) 81 mg PO DAILY [facility] Last Admin: 01/13/20 08:01 Dose: 81 mg Atorvastatin Calcium (Lipitor*) 80 mg PO DAILY [facility] Last Admin: 01/13/20 08:00 Dose: 80 mg Brimonidine Tartrate (Alphagan P 0.1% (Nf)) 1 drop BOTH EYES BID [facility] Last Admin: 01/13/20 08:04 Dose: 1 drop Carvedilol (Coreg Tab*) 25 mg PO BID [facility] Last Admin: 01/13/20 08:02 Dose: 25 mg Dextrose (D50w Syringe 50 Ml*) 12.5 gm IV PUSH .FOR FS < 60 - SS PRN PRN Reason: FS < 60 Digoxin (Lanoxin Tab*) 0.125 mg PO QAM [facility] Last Admin: 01/13/20 08:01 Dose: 0.125 mg Doxycycline Hyclate (Vibramycin Cap(*)) 100 mg PO BID [facility] Last Admin: 01/13/20 08:02 Dose: 100 mg Enoxaparin Sodium (Lovenox(*)) 40 mg SUBCUT Q24H [facility] Last Admin: 01/12/20 15:55 Dose: 40 mg Finasteride (Proscar Tab*) 5 mg PO QPM [facility] Last Admin: 01/12/20 17:15 Dose: 5 mg Heparin Sodium (Porcine) (Heparin Flush Picc/Ml/Cvc(*)) 0 ml FLUSH .PER PROTOCOL [facility] Last Admin: 01/13/20 05:24 Dose: 1 ml Ceftriaxone Sodium 1 gm/ (Sodium Chloride) 50 mls @ 100 mls/hr IVPB Q24H [facility] Last Admin: 01/12/20 15:55 Dose: 100 mls/hr Insulin Human Lispro (Humalog*) 0 units SUBCUT ACHS [facility]; Protocol Last Admin: 01/13/20 08:53 Dose: 2 units Latanoprost (Xalatan 0.005%*) 1 drop BOTH EYES BEDTIME [facility] Last Admin: 01/12/20 20:55 Dose: 1 drop Methimazole (Tapazole Tab*) 1.25 mg PO QAM [facility] Last Admin: 01/13/20 08:03 Dose: 1.25 mg Pantoprazole Sodium (Protonix Tab*) 40 mg PO DAILY [facility] Last Admin: 01/13/20 08:01 Dose: 40 mg Prednisone (Deltasone 10 Mg Tab) 15 mg PO DAILY [facility] Last Admin: 01/13/20 07:59 Dose: 15 mg Prednisone (Deltasone 10 Mg Tab) 10 mg PO QPM [facility] Last Admin: 01/12/20 17:15 Dose: 10 mg Ropinirole HCl (Requip Tab*) 0.25 mg PO DAILY [facility] Last Admin: 01/13/20 08:01 Dose: 0.25 mg Sodium Chloride (Sodium Chloride 0.65% Nasal [place]*) 1 spray .SEE ORDER BEDTIME [facility]; Protocol Last Admin: 01/12/20 20:56 Dose: Not Given Terazosin HCl (Hytrin Cap*) 5 mg PO BEDTIME [facility] Last Admin: 01/12/20 20:55 Dose: 5 mg Vital Signs - 8 hr 01/13/20 01/13/20 01/13/20 03:42 03:43 07:15 Temperature 98 F 98 F Pulse Rate 150 150 95 Respiratory 17 18 Rate Blood Pressure 103/54 104/52 (mmHg) O2 Sat by Pulse 95 99 Oximetry 01/13/20 01/13/20 08:00 08:01 Temperature Pulse Rate 120 Respiratory 20 Rate Blood Pressure (mmHg) O2 Sat by Pulse Oximetry Oxygen Devices in Use Now: None Appearance: Pleasant elderly gentleman sitting up in bed in NAD Eyes: No Scleral Icterus Ears/Nose/Mouth/Throat: Mucous Membranes Moist Neck: Trachea Midline Respiratory: Symmetrical Chest Expansion and Respiratory Effort, Clear to Auscultation Cardiovascular: - - Normal S1 and S2, irregularly irregular Abdominal: NL Sounds; No Tenderness; No Distention Extremities: No Edema Skin: - - Multiple bruises in different stages of healing on both upper extremities Neurological: Alert and Oriented x 3, NL Muscle Strength and Tone Result Diagrams: 01/11/20 05:21 01/13/20 05:28 Microbiology and Other Data: Microbiology 01/09/20 14:20 Legionella Urinary Antigen - Final Urine Negative Legionella Antigen Streptococcus pneumoniae Ag Screen - Final Negative S. pneumo Antigen Assess/Plan/Problems-Billing Assessment: Mr Hanson is an 84yo M with a PMH of type 2 DM, diabetic neuropathy, HFrEF 25% , atrial flutter (not on anticoagulation due to hematuria on Xarelto), HTN, hyperthyroidism, bladder stones, perforated diverticulitis with intrabdominal abscess 11/2018; who presented to ED with c/o severe weakness and fatigue, found to have probable pneumonia. - Patient Problems (1) Pneumonia Comment: - CT chest shows multifocal bilateral airspace disease suggestive of bronchopneumonia. - Legionella, pneumococcal, Influenza are negative. - Blood cultures show no growth to date. - Continue Ceftriaxone and doxycycline #5. (2) Hypotension Comment: - Improving. - Holding parameters for Terazosin. - Increase Caverdilol dose with holding parameters as well. - This appears to be a chronic issue as per last Cardiology progress note - Lisinopril was discontinued in November due to hypotension. (3) Adrenal insufficiency Comment: - Suspect some of his fatigue is also due to secondary adrenal insufficiency. He tells me 5 years ago he was diagnosed with "herniated discs" and was told he was too high risk for surgery. He was then prescribed prednisone to be used "sparingly", but states this has become a routine medication for him, that he takes twice a day. - Suspect he probably needs stress dose now in the setting of pneumonia. (4) Troponin level elevated Comment: - Suspect demand ischemia in the setting of infection and a flutter with RVR. (5) Atrial flutter Comment: - Rate is not controlled - will increase Caverdilol to 25mg AM and 50mg PM and monitor. - Not on anticoagulation due to hematuria with Xarelto. - Continue digoxin; Caverdilol dose was decreased on admission due to hypotension. (6) Heart failure with reduced ejection fraction Comment: - Hold off on diuresis for now - no signs of fluid overload. (7) Type 2 diabetes mellitus Comment: - A1c 7.6. - Glucose trending up - add low dose Lanuts as PO intake has improved. Continue Lispro sliding scale. (8) Hyperthyroidism Comment: - Continue methimazole. - TSH 0.49. (9) DVT prophylaxis Comment: - Lovenox. (10) Full code status Status and Disposition: Inpatient. updated at bedside. Anticipate d/c to [facility] on 2019 if stable.
[2020-01-13] MEDS: Insulin GLARGINE(*) 1 UNITS UNIT SUBCUT SCH (14:23)
[2020-01-13] MEDS: Enoxaparin(*) 40 MG/0.4 ML SYR SUBCUT SCH (14:23)
[2020-01-13] MEDS: cefTRIAXone(*) 1 GM in NS 0.9% 50 ML* 50 ML IVPB SCH (16:00)
[2020-01-13] MEDS: Finasteride TAB* 5 MG PO SCH (17:22)
[2020-01-13] MEDS: Terazosin CAP* 5 MG PO SCH (21:00)
[2020-01-13] MEDS: Latanoprost 0.005%* 2.5 ml BTL BOTH EYES SCH (21:01)
[2020-01-13] MEDS: SALINE 0.65% SCH (21:02)
[2020-01-14] MEDS: Insulin GLARGINE(*) 1 UNITS UNIT SUBCUT SCH ×2 (01:36→14:26)
[2020-01-14] MEDS: Insulin LISPRO* 1 UNITS UNIT SUBCUT SCH ×4 (08:24→21:12)
[2020-01-14] MEDS: Allopurinol TAB* 100 MG PO SCH (08:37)
[2020-01-14] MEDS: Atorvastatin* 80 MG TAB PO SCH (08:37)
[2020-01-14] MEDS: Ropinirole TAB* 0.5 MG TAB PO SCH (08:37)
[2020-01-14] MEDS: Aspirin EC TAB* 81 MG TAB.EC PO SCH (08:38)
[2020-01-14] MEDS: Digoxin TAB* 0.125 MG PO SCH (08:38)
[2020-01-14] MEDS: DOXYcycline CAP(*) 100 MG PO SCH ×2 (08:38→21:11)
[2020-01-14] MEDS: Pantoprazole TAB * 40 MG TAB PO SCH (08:38)
[2020-01-14] MEDS: Methimazole TAB* 5 MG PO SCH (08:39)
[2020-01-14] MEDS: Carvedilol TAB* 25 MG PO SCH ×2 (08:39→17:19)
[2020-01-14] MEDS: Brimonidine P 0.1%(NF) 1 DROP BTL BOTH EYES SCH ×2 (08:39→21:12)
[2020-01-14] MEDS: Enoxaparin(*) 40 MG/0.4 ML SYR SUBCUT SCH (14:26)
--- NOTE | 2020-01-14 15:43 | PN ---
Subjective Date of Service: 01/14/20 Interval History: Pt feels well, still thinks he'll need STR due to deconditioning. Denies abd pain or SOB Family History: Unchanged from Admission Social History: Unchanged from Admission Past Medical History: Unchanged from Admission Objective Active Medications: Acetaminophen (Tylenol Tab*) 650 mg PO Q6H PRN PRN Reason: MILD PAIN or TEMP > 100.4 Allopurinol (Zyloprim Tab*) 100 mg PO DAILY [facility] Last Admin: 01/14/20 08:37 Dose: 100 mg Aspirin (Aspirin Ec Tab*) 81 mg PO DAILY [facility] Last Admin: 01/14/20 08:38 Dose: 81 mg Atorvastatin Calcium (Lipitor*) 80 mg PO DAILY [facility] Last Admin: 01/14/20 08:37 Dose: 80 mg Brimonidine Tartrate (Alphagan P 0.1% (Nf)) 1 drop BOTH EYES BID [facility] Last Admin: 01/14/20 08:39 Dose: 1 drop Carvedilol (Coreg Tab*) 50 mg PO QPM [facility] Last Admin: 01/13/20 17:22 Dose: 50 mg Carvedilol (Coreg Tab*) 25 mg PO QAM [facility] Last Admin: 01/14/20 08:39 Dose: 25 mg Dextrose (D50w Syringe 50 Ml*) 12.5 gm IV PUSH .FOR FS < 60 - SS PRN PRN Reason: FS < 60 Digoxin (Lanoxin Tab*) 0.125 mg PO QAM [facility] Last Admin: 01/14/20 08:38 Dose: 0.125 mg Doxycycline Hyclate (Vibramycin Cap(*)) 100 mg PO BID [facility] Last Admin: 01/14/20 08:38 Dose: 100 mg Enoxaparin Sodium (Lovenox(*)) 40 mg SUBCUT Q24H [facility] Last Admin: 01/14/20 14:26 Dose: 40 mg Finasteride (Proscar Tab*) 5 mg PO QPM [facility] Last Admin: 01/13/20 17:22 Dose: 5 mg Heparin Sodium (Porcine) (Heparin Flush Picc/Ml/Cvc(*)) 0 ml FLUSH .PER PROTOCOL [facility] Last Admin: 01/13/20 05:24 Dose: 1 ml Ceftriaxone Sodium 1 gm/ (Sodium Chloride) 50 mls @ 100 mls/hr IVPB Q24H [facility] Last Admin: 01/13/20 16:00 Dose: 100 mls/hr Insulin Glargine (Lantus(*)) 10 units SUBCUT Q12H [facility] Last Admin: 01/14/20 14:26 Dose: 10 units Insulin Human Lispro (Humalog*) 0 units SUBCUT ACHS [facility]; Protocol Last Admin: 01/14/20 12:20 Dose: 2 units Latanoprost (Xalatan 0.005%*) 1 drop BOTH EYES BEDTIME [facility] Last Admin: 01/13/20 21:01 Dose: 1 drop Methimazole (Tapazole Tab*) 1.25 mg PO QAM [facility] Last Admin: 01/14/20 08:39 Dose: 1.25 mg Pantoprazole Sodium (Protonix Tab*) 40 mg PO DAILY [facility] Last Admin: 01/14/20 08:38 Dose: 40 mg Prednisone (Deltasone 10 Mg Tab) 15 mg PO DAILY [facility] Last Admin: 01/14/20 08:37 Dose: 15 mg Prednisone (Deltasone 10 Mg Tab) 10 mg PO QPM [facility] Last Admin: 01/13/20 17:21 Dose: 10 mg Ropinirole HCl (Requip Tab*) 0.25 mg PO DAILY [facility] Last Admin: 01/14/20 08:37 Dose: 0.25 mg Sodium Chloride (Sodium Chloride 0.65% Nasal [place]*) 1 spray .SEE ORDER BEDTIME [facility]; Protocol Last Admin: 01/13/20 21:02 Dose: Not Given Terazosin HCl (Hytrin Cap*) 5 mg PO BEDTIME [facility] Last Admin: 01/13/20 21:00 Dose: 5 mg Vital Signs - 8 hr 01/14/20 01/14/20 01/14/20 08:00 08:38 11:15 Temperature 98.1 F Pulse Rate 117 100 Respiratory 20 20 Rate Blood Pressure 93/56 (mmHg) O2 Sat by Pulse 96 Oximetry Oxygen Devices in Use Now: None Appearance: 84 yo M in nAD, aAOx3 Eyes: No Scleral Icterus, PERRLA Ears/Nose/Mouth/Throat: NL Teeth, Lips, Gums, Mucous Membranes Moist Neck: NL Appearance and Movements; NL JVP, Trachea Midline Respiratory: Symmetrical Chest Expansion and Respiratory Effort, Clear to Auscultation Cardiovascular: NL Sounds; No Murmurs; No JVD, RRR Abdominal: NL Sounds; No Tenderness; No Distention, No Hepatosplenomegaly Lymphatic: No Cervical Adenopathy Extremities: No Edema Skin: No Rash or Ulcers Neurological: Alert and Oriented x 3, NL Muscle Strength and Tone Result Diagrams: 01/11/20 05:21 01/13/20 05:28 Microbiology and Other Data: Microbiology 01/09/20 14:20 Legionella Urinary Antigen - Final Urine Negative Legionella Antigen Streptococcus pneumoniae Ag Screen - Final Negative S. pneumo Antigen Assess/Plan/Problems-Billing Assessment: Mr Hanson is an 84 yo M with a PMH of type 2 DM, diabetic neuropathy, HFrEF 25 %, atrial flutter (not on anticoagulation due to hematuria on Xarelto), HTN, hyperthyroidism, bladder stones, perforated diverticulitis with intrabdominal abscess 11/2018; who presented to ED with c/o severe weakness and fatigue, found to have probable pneumonia. - Patient Problems (1) Adrenal insufficiency Comment: - Suspect some of his fatigue is also due to secondary adrenal insufficiency. He stated that 5 years ago he was diagnosed with "herniated discs" and was told he was too high risk for surgery. He was then prescribed prednisone to be used "sparingly", but states this has become a routine medication for him, that he takes twice a day 10 mg BID (2) Atrial flutter Comment: - had transient a. flutter on 01/14/20, resolved, cont Caverdilol to 25mg AM and 50mg PM and monitor. - Not on anticoagulation due to hematuria with Xarelto. - Continue digoxin; Caverdilol dose was decreased on admission due to hypotension, now back on home dose. (3) Heart failure with reduced ejection fraction Comment: - Hold off on diuresis for now - no signs of fluid overload. (4) Hyperthyroidism Comment: - Continue methimazole. - TSH 0.49. (5) Hypotension Comment: - resolved - Holding parameters for Terazosin. - This appears to be a chronic issue as per last Cardiology progress note - Lisinopril was discontinued in November due to hypotension. (6) Pneumonia Comment: - CT chest shows multifocal bilateral airspace disease suggestive of bronchopneumonia. - Legionella, pneumococcal, Influenza are negative. - Blood cultures show no growth to date. - cont Ceftriaxone and doxycycline #6, cont x1 more day. (7) Troponin level elevated Comment: - Suspect demand ischemia in the setting of infection and a flutter with RVR. (8) Type 2 diabetes mellitus Comment: - A1c 7.6. - Glucose trending up - restarted dose Lantus as PO intake has improved. Continue Lispro sliding scale. (9) DVT prophylaxis Comment: - Lovenox. Status and Disposition: Inpatient. updated at bedside. Anticipate d/c to [facility] on 2019 if stable.
[2020-01-14] MEDS: cefTRIAXone(*) 1 GM in NS 0.9% 50 ML* 50 ML IVPB SCH (16:16)
[2020-01-14] MEDS: Finasteride TAB* 5 MG PO SCH (17:19)
[2020-01-14] MEDS: Terazosin CAP* 5 MG PO SCH (21:11)
[2020-01-14] MEDS: Latanoprost 0.005%* 2.5 ml BTL BOTH EYES SCH (21:12)
[2020-01-14] MEDS: SALINE 0.65% SCH (21:19)
[2020-01-15] MEDS: Insulin GLARGINE(*) 1 UNITS UNIT SUBCUT SCH (01:53)
[2020-01-15] MEDS: Insulin LISPRO* 1 UNITS UNIT SUBCUT SCH (07:11)
[2020-01-15 08:32] VITALS: BP 115/52
[2020-01-15] MEDS: Digoxin TAB* 0.125 MG PO SCH (08:59)
[2020-01-15] MEDS: Aspirin EC TAB* 81 MG TAB.EC PO SCH (08:59)
[2020-01-15] MEDS: Brimonidine P 0.1%(NF) 1 DROP BTL BOTH EYES SCH (08:59)
[2020-01-15] MEDS: Carvedilol TAB* 25 MG PO SCH (08:59)
[2020-01-15] MEDS: Atorvastatin* 80 MG TAB PO SCH (08:59)
[2020-01-15] MEDS: Allopurinol TAB* 100 MG PO SCH (08:59)
[2020-01-15] MEDS: DOXYcycline CAP(*) 100 MG PO SCH (09:00)
[2020-01-15] MEDS: Ropinirole TAB* 0.5 MG TAB PO SCH (09:00)
[2020-01-15] MEDS: Pantoprazole TAB * 40 MG TAB PO SCH (09:00)
[2020-01-15] MEDS: Methimazole TAB* 5 MG PO SCH (09:01)
--- NOTE | 2020-01-15 11:48 | DS ---
ADDENDUM NOW INCLUDED ON THIS REPORT CC: Dr. Stephens; [facility] * DISCHARGE SUMMARY: DATE OF ADMISSION: 01/09/20 DATE OF DISCHARGE: 01/15/20 PRIMARY CARE PROVIDER: Dr. Stephens DISPOSITION AT DISCHARGE: [facility]. CONDITION AT DISCHARGE: Stable. DISCHARGE DIAGNOSES: 1. Bibasilar pneumonia. 2. Recurrence of paroxysmal atrial flutter. 3. Transient hypotension in patient with history of adrenal insufficiency. His chronic prednisone was decreased transiently throughout his hospital stay. SECONDARY DIAGNOSES: 1. Coronary artery disease. 2. History of chronic systolic congestive heart failure with ejection fraction of 20% to 25%. 3. Atrial flutter, not on anticoagulation with a history of hematuria with Xarelto. 4. Hyperthyroidism. 5. Hypertension. 6. Neuropathy. 7. Gout. 8. History of bladder stones status post in the past. 9. History of chronic back pain, on prednisone 10 mg twice a day, standing order as per Dr. Stephens. MEDICATIONS AT DISCHARGE: Include: 1. Allopurinol 100 mg daily. 2. Aspirin 81 mg daily. 3. Lipitor 80 mg daily. 4. Alphagan eyedrops one drop both eyes b.i.d. 5. Coreg 25 mg in the a.m. and 50 mg q.p.m. 6. Digoxin 0.125 mg q.a.m. 7. Proscar 5 mg q.p.m. 8. Xalatan eyedrops one drop both eyes at bedtime. 9. Methimazole 1.25 mg daily. 10. Prilosec 20 mg daily. 11. Requip 0.5 mg daily. 12. Hytrin 5 mg at bedtime. 13. Ultram 50 mg q.p.m. p.r.n. 14. Insulin aspart 3 times a day before meals as per carb counting. The patient uses one unit of insulin per 10 carbs. 15. Insulin glargine was lowered the dose from 35 units twice a day to 10 units twice a day at discharge. 16. Prednisone 10 mg b.i.d. LABORATORY DATA AND STUDIES PERFORMED DURING THE HOSPITAL STAY: Included: On 03/27: white blood cell count of 7.5, hemoglobin 11.7, hematocrit 35, and platelets of 215. Sodium of 138, potassium 4.2, chloride 103, carbon dioxide 28 , BUN 20, creatinine 0.93 that was documented on 01/13/20. Microbiology studies; blood cultures no growth day 5. The patient's urine was negative for Legionella and Strep pneumoniae antigen. Urine culture reported from admission no growth. Chest CT obtained on 01/10/20, impression "multiple airspace disease in both lungs with a central distribution. There is no appreciable interstitial edema. The differential includes infectious inflammatory airspace disease versus noncardiogenic pulmonary edema, bilateral pleural effusion, atherosclerosis." HOSPITALIZATION COURSE: Cleveland Hanson is an 84-year-old male who has been using prednisone for chronic pain for the past couple of months twice a day and also has history of CHF with EF of 20% to 25% who presented to the hospital with abdominal pain and shortness of breath. The patient was noted to have bibasilar infiltrates on CT and mild CHF. He was given Lasix in the emergency department. Infectious workup was carried on with cultures that have been negative. Flu test was negative. Legionella Strep pneumo testing that was negative. He was treated with broad-spectrum antibiotics including doxycycline and ceftriaxone throughout his hospital stay. On the day of discharge, he is on day 7 of his antibiotics and he will not need to receive any further antibiotics at [facility]. The patient developed hypotension after his initial diuresis in the ED. He was noted to have likely adrenal insufficiency due to chronic use of prednisone. His prednisone was increased and his medications were adjusted. His Coreg dose was lowered. Likely due to that, his paroxysmal atrial flutter recurred. His medications were adjusted back to his home dose but he continued throughout the remaining of his hospital stay in atrial flutter with a rate controlled heart rate. Patient has history of not tolerating anticoagulation due to hematuria when on being on Xarelto. Throughout the remainder of his hospital stay, the patient continued to be in atrial flutter and was rate controlled. His systolic pressures were slowly improving and we placed him back on his home prednisone at 10 mg twice a day. Initially, he did not require his 35 units of insulin twice at admission due to somnolence and not feeling well and poor appetite. His Lantus was reintroduced the day prior to discharge at 10 units twice a day and currently his sugars are within acceptable range. It is expected for the patient for his sugars to be high here, with each day when his diet improves and he feels better and he may need to have his insulin Lantus titrated back to 35 units twice a day. During his hospital stay, he was noted to be deconditioned, weak and he underwent physical therapy evaluation who deemed him an appropriate candidate for short term rehabilitation. He was accepted at [facility] today and he is going to go there. Please note that he had a PICC line in his right arm throughout his hospital stay due to poor IV access and that is going to be discontinued at discharge. PHYSICAL EXAMINATION: At the time of discharge, blood pressure of 115/52, heart rate of 87 and regular, respiratory rate 16, oxygen saturation 98% on room air, temperature 96.9. General: The patient is a very pleasant 84-year- old male, who is in no acute distress. The patient is alert and oriented x3. HEENT: Head: Atraumatic, normocephalic. Eyes: Pupils are equal, reactive to light and accommodation. Oropharynx is clear. Mucosa moist. Neck: Supple. No JVD. No bruits bilaterally. Cardiovascular: Regular rate and rhythm. No murmur. Respiratory: Faint crackles at bilateral bases that is described as clean. Abdomen: Soft, nontender. Bowel sounds present in all 4 quadrants. Extremities: There is no ankle edema. Pulses are 2+ bilaterally. There is no clubbing or cyanosis. On neuro evaluation, speech is clear. Cranial nerves II through XII grossly intact. Motor strength is 5/5 bilaterally. Please note that this is a short summary of the patient's prolonged and complicated hospitalization. Please refer to further medical records for details. TIME SPENT: Approximately 45 minutes was spent on the patient's discharge. ADDENDUM: Please note that after discussing with the patient's , she noted that just before he came into the emergency department, he was seen by his primary care provider and the patient's lisinopril and Aldactone that he used to take at 50 mg q.h.s. were discontinued. At this point, we are going to restart the patient's Aldactone at half the dose and continue to hold his lisinopril due to systolic pressure in the 120s at this point, but it is possible that his lisinopril will be able to be restarted in the near future. [id number]/[facility] #: [id number] A- [id number]/[facility] #: [id number] [facility] HEALTH NETWORKMelvin
--- NOTE | 2020-01-15 20:51 | DS ---
DISCHARGE SUMMARY: ADDENDUM: Please note that after discussing with the patient's , she noted that just before he came into the emergency department, he was seen by his primary care provider and the patient's lisinopril and Aldactone that he used to take at 50 mg q.h.s. were discontinued. At this point, we are going to restart the patient's Aldactone at half the dose and continue to hold his lisinopril due to systolic pressure in the 120s at this point, but it is possible that his lisinopril will be able to be restarted in the near future. [id number]/[facility] #: [id number] MTDD
== END 2020-01-15 11:30 | DRG 194 ==
LOC: ED 10:25 → MEDTELE 13:38 → OBSVTOIN 14:00
PROVIDERS: ADMIT Hospitalist; ATTEND Internal Medicine
PROC: 05HY33Z Insertion of Infusion Device into Upper Vein, Percutaneous Approach (ICD-10-PCS; principal; 2020-01-12)
DX: J18.9 Pneumonia, unspecified organism (principal); I48.92 Unspecified atrial flutter; E27.40 Unspecified adrenocortical insufficiency; I50.22 Chronic systolic (congestive) heart failure; E11.40 Type 2 diabetes mellitus with diabetic neuropathy, unspecified; I25.10 Atherosclerotic heart disease of native coronary artery without angina pectoris; I11.0 Hypertensive heart disease with heart failure; H40.9 Unspecified glaucoma; R53.1 Weakness; K59.00 Constipation, unspecified; E05.90 Thyrotoxicosis, unspecified without thyrotoxic crisis or storm; I95.9 Hypotension, unspecified; M10.9 Gout, unspecified; M54.9 Dorsalgia, unspecified; R74.8 Abnormal levels of other serum enzymes; Z87.19 Personal history of other diseases of the digestive system; Z79.82 Long term (current) use of aspirin; Z79.4 Long term (current) use of insulin; Z79.52 Long term (current) use of systemic steroids; Z79.899 Other long term (current) drug therapy; Z88.8 Allergy status to other drugs, medicaments and biological substances; Z82.3 Family history of stroke; Z82.49 Family history of ischemic heart disease and other diseases of the circulatory system; Z87.891 Personal history of nicotine dependence
CPT/HCPCS: 36415; 71046; 71250; 74019; 80048; 80053; 80061; 80162; 81003; 81015; 82550; 82553; 83036; 83605; 83735; 83880; 84443; 84484; 85025; 86140; 87040; 87086; 87899; 93005; 99284; A9270-GY; J0696; J1650; J1940; J3475; J7512